=== PATIENT | male | born 1970 | race Caucasian/White ===

== ENCOUNTER 2016-09-24 00:49 | Inpatient (IN) ==
[2016-09-24] MEDS ORDERED: ONDANSETRON 4 MG/2 ML VIAL IV STA (01:07)
[2016-09-24] MEDS ORDERED: HYDROmorphone 2 MG/1 ML VIAL IV STA (01:07)
[2016-09-24] MEDS ORDERED: ONDANSETRON 4 MG/2 ML VIAL ONE (01:27)
[2016-09-24] MEDS ORDERED: HYDROmorphone 2 MG/1 ML VIAL ONE (01:28)
[2016-09-24 01:40] LABS: Basophils # 0.1 10*3/uL (0.0-0.2); Basophils % 0.6 % (0.0-0.8); Eosinophils # 0.4 10*3/uL (0.0-0.87); Eosinophils % 2.1 % (0.00-10.9); Hematocrit 41.6 VOL% (42.0-52.0); Hemoglobin 14.7 GM/DL (14.0-18.0); Immature Granulocytes % 0.6 %; Immature Granulocytes Absolute 0.12 #; Lymphocytes # 3.5 10*3/uL (1.4-4.0); Lymphocytes % 16.8 % (21.2-54.2); Mean Corpuscular HGB Conc 35.3 GM/DL (32-36); Mean Corpuscular Hemoglobin 31 PG (27-34); Mean Corpuscular Volume 88.9 FL (87-102); Mean Platelet Volume 10.2 FL (9.6-12.0); Monocytes # 2.5 10*3/uL (0.11-0.8); Monocytes % 12.1 % (1.7-12.7); Neutrophils # 14.2 10*3/uL (1.4-7.4); Neutrophils % 67.8 % (38.7-73.9); Platelet Count 391 T/CUMM (130-400); Red Blood Count 4.68 MC/CUMM (3.8-5.5); Red Cell Distribution Width 14.8 % (9.3-17.3); White Blood Count 20.9 T/CUMM (4-12)
--- NOTE | 2016-09-24 01:46 | Emergency Department Note ---
Nikhil Ambriz Mantricia, am scribing for, and in the presence of, Eldon Valencia MD 01:12. Erik Ambriz Robert M, MD, personally performed the services described in this documentation, ascribed by Bobby Tejeda in my presence, and it is both accurate and complete . Arrival - Arrival Chief Complaint: Abdominal / Flank Pain Stated Complaint: severe abd. pain ED Nursing Triage Note: pt states he is having severe abd pain that started last night and getting worse. states last time this happened he had pancreatitis Mode of Arrival: Ambulatory Limitations: No Limitations Source: Patient - History of Present Illness HPI Narrative: Pt is a 46 y/o white male arriving to ED with c/o abdominal pain that onset last night. Pt states that he has a Hx of pancreatitis and reports that his sxs now are similar to those of his pancreatic pain. Pt states that the pain radiates to his back. 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 Encarnacion. Pt states that at that time, 20% of his pancreas and 100% of his spleen was removed. He also states that a BARTOLO drain was performed by Dr. Encarnacion last and a red catheter was reinserted. Pt has had 4 ERCPs in the last 3 months. His PCP is Dr. Do. He reports no other complaints to ED. Onset (ago): hour(s) Consistency: constant Severity: mild Allergies/Adverse Reactions: Allergies Allergy/AdvReac Type Severity Reaction Status Date / Time No Known Allergies Allergy Verified 04/25/16 13:55 Home Medications: Home Medications Medication Instructions Recorded Confirmed Type Pramipexole Di-HCl [Pramipexole 0.25 mg PO BEDTIME 04/25/16 08/07/16 History Dihydrochloride] Rosuvastatin Calcium [Crestor] 40 mg PO BEDTIME 04/25/16 08/07/16 History glipiZIDE [Glipizide Xl] 10 mg PO BEDTIME 04/25/16 08/07/16 History sitaGLIPtin [Januvia] 100 mg PO BEDTIME 04/25/16 08/07/16 History Senna Tab [Senokot] 25.8 mg PO BEDTIME 06/20/16 08/07/16 History Amlodipine Besylate 5 mg PO DAILY #30 tablet 08/10/16 Rx Amoxicillin Cap/Tab 875 mg PO Q12HR #30 tablet 08/10/16 Rx Insulin Glargine [Lantus] 25 unit SUBCUT BEDTIME 08/14/16 08/14/16 History Review of System - Review of System 12 point system: reviewed and no additional remarkable complaints except as stated - Review of System Respiratory: Absent: cough Cardiovascular: Absent: chest pain Gastrointestinal: Present: abdominal pain Genitourinary male: Absent: urgency Musculoskeletal: Present: back pain. Absent: arm pain, leg pain, neck pain Medical,Surgical,& Family Hx - Medical History Cardio: History of: Hypertension No history of: Cardiovascular Problems Neurology: No history of: Seizures Endocrine: History of: Diabetes Mellitus (NIDDM) Respiratory: History of: COPD, Obstructive Sleep Apnea (CPap) Gastrointestinal: History of: Pancreatitis, GI Problems (percutaneous drain inserted at time of surgery in April) Musculoskeletal: History of: Musculoskeletal Problems (OA) Hematology: No history of: Anemia, Blood Transfusion Reaction Other: No history of: Anesthesia Reactions, Cancer - Surgical History Cardiac Surgeries: Sugical HX of: Cardiac Catheterization Patient Denies: Cardiac Surgery Thoracic Surgeries: Patient denies;: Lobectomy HEENT Surgeries: Patient denies: Tonsilectomy & Adenoidectomy Abdominal Surgeries: Surgical HX of: Abdominal Surgery (Pancreatectomy and spleenectomy) Patient denies: Appendectomy, Cholecystectomy, Colonoscopy, EGD Orthopedic Surgeries: Patient denies;: Orthopedic Surgery - Family History Family History: Reports;: Family Cancer (mother-breast, aunt-leukemia, brother- throat), Family Heart Disease (PARENTS), Family Hypertension Denies;: Family Diabetes - Social History Smoking Status: Current every day smoker Frequency of Alcohol Use: None Type of Drug Use: None Exam Vital Signs: Vital Signs Temperature 99.1 F 09/24/16 01:41 Pulse Rate 124 H 09/24/16 01:41 Respiratory Rate 18 09/24/16 01:41 Blood Pressure 131/95 09/24/16 01:41 O2 Sat by Pulse Oximetry 95 09/24/16 00:52 - General General appearance: alert, in no apparent distress - Head Head exam: Present: atraumatic, normocephalic, normal inspection - Eye Eye exam: Present: normal appearance, PERRL, EOMI - ENT ENT exam: Present: normal exam, normal oropharynx, mucous membranes moist, TM's normal bilaterally, normal external ear exam - Neck Neck exam: Present: normal inspection, full ROM, trachea midline. Absent: tenderness - Chest Chest inspection: Present: normal inspection, symmetric chest wall rise. Absent : tenderness - Respiratory Respiratory exam: Present: normal lung sounds bilaterally - Cardiovascular Cardiovascular exam: Present: regular rate, normal rhythm, normal heart sounds - Abdominal Exam Abdominal exam: Present: soft, tenderness, guarding. Absent: distention, rebound, normal bowel sounds - Extremities Exam Extremities exam: Present: normal inspection, full ROM, normal capillary refill. Absent: tenderness, pedal edema - Back Exam Back exam: Present: normal inspection, full ROM. Absent: tenderness - Neurological Exam Neurological exam: Present: alert, oriented X3, CN II-XII intact, normal gait, reflexes normal - Psychiatric Psychiatric exam: Present: normal affect, normal mood - Skin Skin exam: Present: warm, dry, intact, normal color Course - Consultations Consultation #1: Spoke to Dr. Doug Encarnacion k will admit the patient and see him later this morning. Time: 02:53 Results - Labs CBC & BMP: 09/24/16 01:28 09/24/16 01:28 Lab Results: I have reviewed the patients labs Labs: Lab Results WBC 20.9 T/CUMM (4-12) H 09/24/16 01:28 RBC 4.68 MC/CUMM (3.8-5.5) 09/24/16 01:28 Hgb 14.7 GM/DL (14.0-18.0) 09/24/16 01:28 Hct 41.6 VOL% (42.0-52.0) L 09/24/16 01:28 MCV 88.9 FL (87-102) 09/24/16 01:28 MCH 31 PG (27-34) 09/24/16 01:28 MCHC 35.3 GM/DL (32-36) 09/24/16 01:28 RDW 14.8 % (9.3-17.3) 09/24/16 01:28 Plt Count 391 T/CUMM (130-400) 09/24/16 01:28 MPV 10.2 FL (9.6-12.0) 09/24/16 01:28 Neut % (Auto) 67.8 % (38.7-73.9) 09/24/16 01:28 Lymph % (Auto) 16.8 % (21.2-54.2) L 09/24/16 01:28 [place] % (Auto) 12.1 % (1.7-12.7) 09/24/16 01:28 Eos % (Auto) 2.1 % (0.00-10.9) 09/24/16 01:28 Baso % (Auto) 0.6 % (0.0-0.8) 09/24/16 01:28 Neut # (Auto) 14.2 10*3/uL (1.4-7.4) H 09/24/16 01:28 Lymph # (Auto) 3.5 10*3/uL (1.4-4.0) 09/24/16 01:28 [place] # (Auto) 2.5 10*3/uL (0.11-0.8) H 09/24/16 01:28 Eos # (Auto) 0.4 10*3/uL (0.0-0.87) 09/24/16 01:28 Baso # (Auto) 0.1 10*3/uL (0.0-0.2) 09/24/16 01:28 Immature Gran % 0.6 % 09/24/16 01:28 Nucleated RBC % 0.0 /100WBC 09/24/16 01:28 Immature Gran # 0.12 # 09/24/16 01:28 Nucleated RBCs # 0.00 10*3/uL 09/24/16 01:28 Sodium 136 MMOL/L (136-145) 09/24/16 01:28 Potassium 3.9 MMOL/L (3.5-5.1) 09/24/16 01:28 Chloride 103 MMOL/L (98-107) 09/24/16 01:28 Carbon Dioxide 26 MMOL/L (21-32) 09/24/16 01:28 Anion Gap 10.9 MMOL/L (5.0-15.0) 09/24/16 01:28 BUN 18 MG/DL (7-18) 09/24/16 01:28 Creatinine 0.90 MG/DL (0.70-1.30) 09/24/16 01:28 GFR Calculation 125 ML/MIN 09/24/16 01:28 BUN/Creatinine Ratio 20.00 RATIO (6.00-20.00) 09/24/16 01:28 Glucose 252 MG/DL (74-106) H 09/24/16 01:28 Calculated Osmolality 282.0 MOS/KG (273-304) 09/24/16 01:28 Calcium 8.9 MG/DL (8.5-10.1) 09/24/16 01:28 Magnesium 2.0 MG/DL (1.8-2.4) 09/24/16 01:28 Amylase 81 U/L (25-115) 09/24/16 01:28 Lipase 976.0 U/L (73-393) H 09/24/16 01:28 Urine Color Yellow (Yellow) 09/24/16 01:41 Urine Appearance Clear (Clear) 09/24/16 01:41 Urine pH 6.0 (4.5-8.0) 09/24/16 01:41 Ur Specific [place] 1.023 (1.001-1.035) 09/24/16 01:41 Urine Protein Negative MG/DL 09/24/16 01:41 Urine Glucose (UA) >=500 mg/dL (Negative) 09/24/16 01:41 Urine Ketones 5 mg/dL (Negative) 09/24/16 01:41 Urine Blood Small mg/dL (Negative) 09/24/16 01:41 Urine Nitrate Negative (Negative) 09/24/16 01:41 Urine Bilirubin Negative mg/dL (Negative) 09/24/16 01:41 Urine Urobilinogen 2.0 EU/DL (0.2-1.0) H 09/24/16 01:41 Urine Leukocytes Trace Victoriano/ul (Negative) 09/24/16 01:41 Urine RBC <1 /HPF (0-4) 09/24/16 01:41 Urine WBC <1 /HPF (0-6) 09/24/16 01:41 Ur Renal Epithelial Cell Occasional /HPF (<1) 09/24/16 01:41 Urine Mucus Occasional /LPF (Occasional) 09/24/16 01:41 Ur Culture Indicated? Not indicated 09/24/16 01:41 - Diagnostic Findings Procedure: CT Abdomen and Pelvis: image reviewed by me (Large pancreatic phlegmon. Drainage catheter in place does not appear to be effectively draining the surgical bed.) Disposition Clinical Impression: Acute pancreatitis, DM2 (diabetes mellitus, type 2), HTN (hypertension) Case discussed with: patient Disposition: Still a Patient Condition: Stable Time of Disposition: 02:54
[2016-09-24 01:51] LABS: Apearance,Urine CLEAR (Clear); Bilirubin,Urine Negative (Negative); Blood, Urine Small mg/dL (Negative); Glucose,Urine (UA) >=500 mg/dL (Negative); Ketones,Urine 5 mg/dL (Negative); Mucus,Urine Occasional /LPF (Occasional); Nitrite,Urine Negative (Negative); Protein,Urine Negative; RBC,Urine <1 /HPF (0-4); Renal Epithelial Cells,Urine Occasional /HPF (<1); Urine Color Yellow (Yellow); Urine Specific Gravity 1.023 (1.001-1.035); WBC,Urine <1 /HPF (0-6)
[2016-09-24 01:59] LABS: Calcium 8.9 MG/DL (8.5-10.1); Potassium 3.9 MMOL/L (3.5-5.1)
[2016-09-24] MEDS ORDERED: GLUCAGON 1 MG VIAL IM PRN (02:55)
[2016-09-24] MEDS ORDERED: ONDANSETRON 4 MG/2 ML VIAL IV PRN (02:55)
[2016-09-24] MEDS ORDERED: DEXTROSE 50% 25 GM/50 ML VIAL IV PRN (02:55)
[2016-09-24] MEDS ORDERED: BISACODYL 5 MG TABLET PO PRN (02:55)
[2016-09-24] MEDS ORDERED: ACETAMINOPHEN 325 MG TABLET PO PRN (02:55)
[2016-09-24 03:52] LABS: Anisocytosis 1+; Eosinophils 3 % (0-10); Lymphocytes 17 % (20-55); Metamyelocytes 1 %; Microcytosis 1+; Platelet Estimate Normal; Segmented Neutrophils 66 % (50-85); Total Cells Counted 100
[2016-09-24] MEDS: HYDROmorphone 2 MG/1 ML VIAL IV PRN ×4 (04:51→20:04)
--- NOTE | 2016-09-24 06:23 | XRay Report ---
XR KUB Indication: Abdominal pain. Comparison: Abdominal series 08/14/2016. Technique: Supine AP image of the abdomen was obtained. Findings: Lung bases are clear. There is no evidence of organomegaly. Bowel gas pattern is unremarkable. Renal contours are bilaterally symmetric. Bones and soft tissues demonstrate no significant abnormalities. Catheter within the mid left abdomen possibly reflecting percutaneous drain or jejunostomy tube is demonstrated. Impression: 1. No active process is demonstrated within the abdomen or pelvis. 09/24/2016 6:19 AM PROCEDURE INTERPRETED AT [facility] DEPARTMENT OF RADIOLOGY Final Report Signed by: Dr. Curtis Valencia
--- NOTE | 2016-09-24 06:36 | CT Report ---
CT abdomen pelvis w con Indication: Abdominal pain following partial pancreatectomy. Percutaneous drain. Comparison: None. Technique: CT of the abdomen and pelvis was performed following administration of intravenous contrast. The CT examination was performed using one or more of the following dose reduction techniques: Automatic exposure control, adjustment of the mA and kV according to patient size, or iterative reconstruction techniques. Findings: Lower chest: Groundglass attenuation dependently located within the bilateral lower lobes may reflect atelectatic change. No pleural effusions are present. Liver: The liver demonstrates no evidence of focal hepatic mass or evidence of acute pathology. Gallbladder: Gallbladder demonstrates no significant abnormality. Spleen: Spleen appears to be surgically absent. Pancreas: The tail of pancreas is absent. There is a large phlegmon abutting the greater curvature of the stomach with fat stranding and hazy attenuation of the intra-abdominal fat present. No discrete fluid collection is demonstrated within the pancreatic bed. Percutaneous drain present terminates within the anterior fat of the abdomen. There is no distinct fluid collection in the region of termination. There is a curvilinear focus of increased attenuation extending from the tip of the drain into the phlegmon, this may reflect sequelae of previous surgical drain. The remaining body and head of the pancreas demonstrate no significant abnormalities. No ductal dilatation is present. Adrenal glands: Digital implants demonstrate no significant abnormalities. Kidneys: Kidneys demonstrate no significant abnormality. Aorta: The aorta demonstrates no acute findings. Inferior vena cava: Inferior vena cava is normal in appearance. Lymph nodes: Enlarged lower para-aortic lymph nodes measure 12 mm in short axis dimension. Upper para-aortic lymph nodes are borderline in size measuring 7-8 mm. Stomach and bowel: The lesser curvature of the stomach has a moderate amount of adjacent fat stranding as well as suggested wall thickening. This could reflect sequelae of adjacent phlegmon, pancreatitis, or surgical change. The mucosa of the stomach demonstrates no significant abnormality. Small and large bowel demonstrate no acute findings. Intrapelvic contents: Trace amount of free fluid is noted within the pelvis. Intrapelvic contents are otherwise unremarkable. Osseous structures: The imaged osseous structures of the lumbar spine, pelvis, and proximal femurs demonstrate no acute findings. Soft tissues and musculature: Soft tissues and musculature of the body wall demonstrate no acute findings. Left upper abdomen percutaneous drain is present. Impression: 1. Within the resection bed, there is a moderate to large amount of fat stranding which abuts the greater curvature of the stomach and appears to thicken the gastric wall along the greater curvature/caudal gastric antrum. No discrete fluid collections appear associated. Differential considerations include sequelae of focal pancreatitis, postsurgical changes, other inflammatory process. 2. A percutaneous drain present terminates within the anterior abdominal fat and has no discrete fluid collection surrounding the tip. Curvilinear attenuation extending into the pancreatic bed may reflect prior placement of surgical drain or possibly tract from current drain with displacement of current drain. 3. Findings compatible with resection of the pancreatic tail and a portion of the pancreatic body. 4. Enlarged para-aortic lymph nodes may reflect reactive etiology given the recent surgery. Correlation with surgical indication is recommended as metastatic disease is not excluded if resection was performed secondary to neoplasm. 5. Other findings as detailed. 09/24/2016 6:25 AM PROCEDURE INTERPRETED AT [facility] DEPARTMENT OF RADIOLOGY Final Report Signed by: Dr. Curtis Valencia
--- NOTE | 2016-09-24 08:02 | General Surg History&Physical ---
Assessment and Plan (1) Acute pancreatitis Status: Acute Assessment and plan: The patient appears to have some degree of pancreatitis. He feels better this morning. We will let him eat and continue antibiotics and repeat labs tomorrow. Hopefully this is something that will resolve on its own. He states he has not been drinking and this may just be resulting from the healing process in the pancreatic resection bed. Current Visit: Yes History of Present Illness Chief complaint: Abdominal pain History of present illness: Mr. Escalera is a 46 year old male who was admitted to the ER with abdominal pain and evidence of pancreatitis on CT scan. Feels much better this morning. He has a drain that is being slowly removed that is not causing any irritation or pain Home Medications Medication Instructions Recorded Confirmed Type Pramipexole Di-HCl [Pramipexole 0.5 mg PO BEDTIME 04/25/16 09/24/16 History Dihydrochloride] Rosuvastatin Calcium [Crestor] 40 mg PO BEDTIME 04/25/16 09/24/16 History Senna Tab [Senokot] 25.8 mg PO BEDTIME 06/20/16 09/24/16 History Amlodipine Besylate 5 mg PO DAILY #30 tablet 08/10/16 09/24/16 Rx Insulin Aspart [Novolog] See Protocol SQ TID W/MEALS 09/24/16 09/24/16 History Insulin Degludec [Tresiba 86 unit SQ QAM 09/24/16 09/24/16 History Flextouch U-200] Allergies Allergy/AdvReac Type Severity Reaction Status Date / Time No Known Allergies Allergy Verified 04/25/16 13:55 Medical,Surgical,& Family Hx - Medical History Cardio: History of: Hypertension No history of: Cardiovascular Problems Neurology: No history of: Seizures Endocrine: History of: Diabetes Mellitus (IDDM), Diabetes Mellitus (NIDDM) Respiratory: History of: COPD, Obstructive Sleep Apnea (CPap) Gastrointestinal: History of: Pancreatitis, GI Problems (percutaneous drain inserted at time of surgery in April) Musculoskeletal: History of: Musculoskeletal Problems (OA) Hematology: No history of: Anemia, Blood Transfusion Reaction Other: No history of: Anesthesia Reactions, Cancer - Surgical History Cardiac Surgeries: Sugical HX of: Cardiac Catheterization Patient Denies: Cardiac Surgery Thoracic Surgeries: Patient denies;: Lobectomy HEENT Surgeries: Patient denies: Tonsilectomy & Adenoidectomy Abdominal Surgeries: Surgical HX of: Abdominal Surgery (Pancreatectomy and spleenectomy) Patient denies: Appendectomy, Cholecystectomy, Colonoscopy, EGD Orthopedic Surgeries: Patient denies;: Orthopedic Surgery - Family History Family History: Reports;: Family Cancer (mother-breast, aunt-leukemia, brother- throat), Family Heart Disease (PARENTS), Family Hypertension Denies;: Family Diabetes - Social History Smoking Status: Current every day smoker Frequency of Alcohol Use: None Type of Drug Use: None Exam - Constitutional Vitals: Period Temp Pulse Resp BP Sys/Meraz Pulse Ox Last 24 Hr 98.1 F-99.1 F 85-124 16-24 98-131/55-95 95-96 General appearance: no acute distress, over weight - Head Head exam: Present: normal inspection, normocephalic - Eye Eye exam: Present: EOMI Pupils: Present: LOUISE - ENT ENT exam: Present: normal exam Mouth exam: Present: normal external inspection, normal voice - Neck Neck exam: Present: normal inspection, trachea midline - Respiratory Respiratory exam: Present: clear to auscultation bilaterally. Absent: accessory muscle use, chest wall tenderness - Cardiovascular Cardiovascular exam: Present: RRR. Absent: systolic murmur, tachycardia - GI/Abdominal GI/Abdominal exam: Present: soft - Extremities Exam Extremities exam: Present: normal inspection, normal capillary refill - Back Exam Back exam: Present: normal inspection - Neurological Exam Neurological exam: Present: alert, oriented X3 Speech: Present: normal - Skin Skin exam: Present: normal color, warm - Constitutional Constitutional: Present: as per HPI - EENT Nose, mouth and throat: Present: as per HPI - Cardiovascular Cardiovascular: Present: as per HPI - Respiratory Respiratory: Present: as per HPI - Gastrointestinal Gastrointestinal: Present: as per HPI - Genitourinary Genitourinary: Present: as per HPI - Musculoskeletal Musculoskeletal: Present: as per HPI - Neurological Neurological: Present: as per HPI - Endocrine Endocrine: Present: as per HPI Hematologic/Lymphatic: Present: as per HPI Results - Labs CBC & BMP: 09/24/16 01:28 09/24/16 01:28 - Diagnostic Findings Procedure: CT Abdomen and Pelvis: image reviewed by me, report reviewed by me ( There is inflammatory change at the pancreatic resection bed but no fluid collection is seen.)
[2016-09-24] MEDS: INSULIN LISPRO 100 UNIT/ML SUBCUT SCH ×4 (08:28→20:07)
[2016-09-24] MEDS: PANTOPRAZOLE 40 MG TABLET PO SCH (08:28)
[2016-09-24] MEDS: ENOXAPARIN 40 MG/0.4 ML SYRINGE SUBCUT SCH (16:03)
[2016-09-25] MEDS: HYDROmorphone 2 MG/1 ML VIAL IV PRN ×4 (05:38→18:58)
[2016-09-25 06:12] LABS: Basophils # 0.1 10*3/uL (0.0-0.2); Basophils % 0.6 % (0.0-0.8); Eosinophils # 0.4 10*3/uL (0.0-0.87); Eosinophils % 3.3 % (0.00-10.9); Hematocrit 41.8 VOL% (42.0-52.0); Hemoglobin 13.9 GM/DL (14.0-18.0); Immature Granulocytes % 0.7 %; Immature Granulocytes Absolute 0.09 #; Lymphocytes # 2.8 10*3/uL (1.4-4.0); Mean Corpuscular HGB Conc 33.3 GM/DL (32-36); Mean Corpuscular Hemoglobin 30 PG (27-34); Mean Corpuscular Volume 89.9 FL (87-102); Mean Platelet Volume 10.7 FL (9.6-12.0); Monocytes # 1.9 10*3/uL (0.11-0.8); Monocytes % 14.5 % (1.7-12.7); Neutrophils # 7.9 10*3/uL (1.4-7.4); Neutrophils % 59.9 % (38.7-73.9); Platelet Count 409 T/CUMM (130-400); Red Blood Count 4.65 MC/CUMM (3.8-5.5); White Blood Count 13.2 T/CUMM (4-12)
[2016-09-25 06:43] LABS: Calcium 8.8 MG/DL (8.5-10.1); Osmolality,Calculated 275.8 MOS/KG (273-304); Total Protein 6.5 G/DL (6.4-8.3)
[2016-09-25] MEDS: PANTOPRAZOLE 40 MG TABLET PO SCH (09:02)
[2016-09-25] MEDS: INSULIN LISPRO 100 UNIT/ML SUBCUT SCH ×4 (09:02→21:00)
--- NOTE | 2016-09-25 09:49 | General Surgery Progress Note ---
Assessment and Plan (1) Acute pancreatitis Status: Acute Assessment and plan: White blood cell count is improving. Patient's symptoms are improving. Lipase is downtrending. Continue hospital treatment with antibiotics and diet as tolerated. Repeat labs tomorrow. Probable discharge home tomorrow if continues to improve. Current Visit: Yes Subjective Patient reports: Present: no new complaints, feels better, still having pain, pain is less, tolerating a regular diet, afebrile. Absent: nausea, vomiting Exam - Constitutional Vitals: Period Temp Pulse Resp BP Sys/Meraz Pulse Ox Last 24 Hr 97.7 F-98.5 F 78-88 16-20 96-110/55-68 92-98 General appearance: no acute distress, over weight - Head Head exam: Present: normal inspection, normocephalic - Eye Eye exam: Present: EOMI Pupils: Present: LOUISE - ENT ENT exam: Present: normal exam Mouth exam: Present: normal external inspection, normal voice - Neck Neck exam: Present: normal inspection, trachea midline - Respiratory Respiratory exam: Present: clear to auscultation bilaterally. Absent: accessory muscle use, chest wall tenderness - Cardiovascular Cardiovascular exam: Present: RRR. Absent: systolic murmur, tachycardia - GI/Abdominal GI/Abdominal exam: Present: soft. Absent: tenderness, rebound - Extremities Exam Extremities exam: Present: normal inspection, normal capillary refill - Back Exam Back exam: Present: normal inspection - Neurological Exam Neurological exam: Present: alert, oriented X3 Speech: Present: normal - Skin Skin exam: Present: normal color, warm Results - Labs CBC & BMP: 09/25/16 05:22 09/25/16 05:22
[2016-09-25] MEDS: ENOXAPARIN 40 MG/0.4 ML SYRINGE SUBCUT SCH (16:07)
[2016-09-26] MEDS: HYDROmorphone 2 MG/1 ML VIAL IV PRN (00:11)
[2016-09-26 06:51] LABS: Basophils # 0.1 10*3/uL (0.0-0.2); Basophils % 0.7 % (0.0-0.8); Eosinophils # 0.5 10*3/uL (0.0-0.87); Eosinophils % 3.5 % (0.00-10.9); Hematocrit 42.2 VOL% (42.0-52.0); Hemoglobin 14.3 GM/DL (14.0-18.0); Immature Granulocytes % 0.5 %; Immature Granulocytes Absolute 0.07 #; Lymphocytes # 2.8 10*3/uL (1.4-4.0); Lymphocytes % 21.6 % (21.2-54.2); Mean Corpuscular HGB Conc 33.9 GM/DL (32-36); Mean Corpuscular Hemoglobin 30 PG (27-34); Mean Corpuscular Volume 89.8 FL (87-102); Mean Platelet Volume 10.8 FL (9.6-12.0); Monocytes # 1.7 10*3/uL (0.11-0.8); Monocytes % 13.5 % (1.7-12.7); Neutrophils # 7.8 10*3/uL (1.4-7.4); Neutrophils % 60.2 % (38.7-73.9); Platelet Count 412 T/CUMM (130-400); Red Cell Distribution Width 14.6 % (9.3-17.3); White Blood Count 12.9 T/CUMM (4-12)
[2016-09-26 07:20] LABS: Albumin 3.1 G/DL (3.4-5.0); Bilirubin,Total 0.5 MG/DL (0.2-1.0); Calcium 9.2 MG/DL (8.5-10.1); Osmolality,Calculated 276.8 MOS/KG (273-304); Potassium 4.1 MMOL/L (3.5-5.1); Total Protein 6.8 G/DL (6.4-8.3)
[2016-09-26] MEDS: PANTOPRAZOLE 40 MG TABLET PO SCH (08:35)
[2016-09-26] MEDS: INSULIN LISPRO 100 UNIT/ML SUBCUT SCH ×2 (08:35→11:09)
--- NOTE | 2016-09-26 10:05 | Discharge Summary ---
Hospital Course - Hospital Course Hospital Course: 46-year-old male with history of diabetes and hyperlipidemia admitted by Dr. Encarnacion through the ED on 09/24/2016 with abdominal pain and evidence of pancreatitis on CT scan. Patient states he has not been drinking so this may be a result of the healing process in his pancreatic resection bed. He received antibiotics, IV fluids, and bowel rest and he is feeling much better. His leukocytosis is resolving and his lipase has trended down to normal this morning. He is tolerating a diet and his abdominal pain is improved. He will be discharged home on antibiotics for 2 weeks along with [place] for pain. He will follow-up with Dr. Encarnacion in his office in 2 weeks. Care coordination, chart review, and completed discharge paperwork took approximately 31 minutes. - Time spent with patient Time with patient DS: Greater than 30 minutes Diagnosis - Discharge Diagnosis (1) Leukocytosis Status: Resolved (2) DM2 (diabetes mellitus, type 2) Status: Chronic (3) Hyperlipidemia Status: Chronic (4) Acute pancreatitis Status: Resolved Discharge Plan - Discharge Data Disposition: Disch To Home/Self Care Condition at Discharge: Stable Discharge Diet: diabetic diet Activity: resume usual activities as tolerated Driving: other (No driving if taking pain medications) Contact your physician if you experience:: fever over 101, Nausea/Vomiting - Discharge Medications [place] TAB [Flagyl Cap/Tab] 500 mg PO TID #42 tablet Ciprofloxacin Tab [Cipro Tab] 500 mg PO BID #28 tablet HYDROcodone/ACETAMIN 7.5-325 [[place] 7.5-325] 1 tablet PO Q4H PRN #45 tablet PRN Reason: Pain Moderate (4-7) Continue Pramipexole Di-HCl [Pramipexole Dihydrochloride] 0.5 mg PO BEDTIME Insulin Aspart [NovoLOG] See Protocol SQ TID W/MEALS Rosuvastatin Calcium [Crestor] 40 mg PO BEDTIME Senna Tab [Senokot] 25.8 mg PO BEDTIME Amlodipine Besylate 5 mg PO DAILY #30 tablet Insulin Degludec [Tresiba Flextouch U-200] 86 unit SQ QAM - Follow Up or Referral Follow Up: Doug Encarnacion MD [Physician] - 2 Weeks - Forms/Instructions Exam - Constitutional Vitals: Period Temp Pulse Resp BP Sys/Meraz Pulse Ox Last 24 Hr 96.6 F-97.9 F 67-76 16-20 92-110/57-70 91-95 Exam: 46-year-old male, no acute distress, alert and oriented Chest clear CV regular rate and rhythm Abdomen soft, nontender Extremities no edema Discharge Results Labs on day of discharge: Labs from last 24 hours 09/26/16 09/26/16 09/26/16 06:43 06:23 06:23 WBC 12.9 H RBC 4.70 Hgb 14.3 Hct 42.2 MCV 89.8 MCH 30 MCHC 33.9 RDW 14.6 Plt Count 412 H MPV 10.8 Neut % (Auto) 60.2 Lymph % (Auto) 21.6 [place] % (Auto) 13.5 H Eos % (Auto) 3.5 Baso % (Auto) 0.7 Neut # (Auto) 7.8 H Lymph # (Auto) 2.8 [place] # (Auto) 1.7 H Eos # (Auto) 0.5 Baso # (Auto) 0.1 Immature Gran % 0.5 Nucleated RBC % 0.0 Immature Gran # 0.07 Nucleated RBCs # 0.00 Sodium 137 Potassium 4.1 Chloride 102 Carbon Dioxide 26 Anion Gap 13.1 BUN 12 Creatinine 0.90 GFR Calculation 124 BUN/Creatinine Ratio 13.00 Glucose 162 H POC Glucose 169 H Calculated Osmolality 276.8 Calcium 9.2 Total Bilirubin 0.50 AST 9 ALT 17 Alkaline Phosphatase 80 Total Protein 6.8 Albumin 3.1 L Globulin 3.7 H Albumin/Globulin Ratio 0.8 L Lipase 326.0 D 09/25/16 09/25/16 09/25/16 19:54 15:43 10:42 WBC RBC Hgb Hct MCV MCH MCHC RDW Plt Count MPV Neut % (Auto) Lymph % (Auto) [place] % (Auto) Eos % (Auto) Baso % (Auto) Neut # (Auto) Lymph # (Auto) [place] # (Auto) Eos # (Auto) Baso # (Auto) Immature Gran % Nucleated RBC % Immature Gran # Nucleated RBCs # Sodium Potassium Chloride Carbon Dioxide Anion Gap BUN Creatinine GFR Calculation BUN/Creatinine Ratio Glucose POC Glucose 208 H 284 H 203 H Calculated Osmolality Calcium Total Bilirubin AST ALT Alkaline Phosphatase Total Protein Albumin Globulin Albumin/Globulin Ratio Lipase DS: Provider Date of admission: 09/24/16 02:55 Primary care physician: Manny Campos MD Attending physician on admission: Doug Encarnacion MD Discharging clinician: MAX Chen Expected date of discharge: 09/26/16
[2016-09-26 11:38] VITALS: BP 115/64
== END 2016-09-26 12:26 | disposition home or self-care (01) | DRG 440 ==
LOC: N.ED 00:49 → N.EDINP 02:55 → N.3E 03:57
PROVIDERS: ADMIT Surgery; ATTEND Surgery

== ENCOUNTER 2016-11-30 21:55 | Inpatient (IN) ==
[2016-11-30] MEDS ORDERED: PANTOPRAZOLE 40 MG VIAL IV STA (22:46)
[2016-11-30] MEDS ORDERED: SODIUM CHLORIDE 0.9% 1,000 ML IV STA (22:46)
[2016-11-30] MEDS ORDERED: ONDANSETRON 4 MG/2 ML VIAL IV STA (22:46)
[2016-11-30] MEDS ORDERED: METOCLOPRAMIDE 10 MG/2 ML VIAL IV STA (22:46)
--- NOTE | 2016-11-30 22:51 | Emergency Department Note ---
Arrival - Arrival Chief Complaint: Abdominal / Flank Pain Stated Complaint: pancreatitis attack ED Nursing Triage Note: pt presented to triage ambulatory with c/o abd pain x 4 days. worse tonight. states "feels like pancreatitis again". also c/o nausea Mode of Arrival: Ambulatory Limitations: No Limitations Source: Patient Time Seen by Provider: 11/30/16 22:46 - History of Present Illness HPI Narrative: This 46-year-old white male presents with a history of 4 days of progressive worsening midepigastric pain radiating to the back. The patient has had nausea with this situation but no vomiting, chills, fever, or diarrhea. The patient states he does have a history of pancreatitis on 2 prior occasions but this does not quite feel the same. He does complain of increased heartburn and water brash. Currently he appears very uncomfortable but in no acute medical distress. Onset (ago): day(s) (Patient presents 4 days post onset of symptoms) Allergies/Adverse Reactions: Allergies Allergy/AdvReac Type Severity Reaction Status Date / Time No Known Allergies Allergy Verified 11/30/16 22:06 Home Medications: Home Medications Medication Instructions Recorded Confirmed Type Pramipexole Di-HCl [Pramipexole 0.5 mg PO BEDTIME 04/25/16 09/24/16 History Dihydrochloride] Rosuvastatin Calcium [Crestor] 40 mg PO BEDTIME 04/25/16 09/24/16 History Senna Tab [Senokot] 25.8 mg PO BEDTIME 06/20/16 09/24/16 History Amlodipine Besylate 5 mg PO DAILY #30 tablet 08/10/16 09/24/16 Rx Insulin Aspart [NovoLOG] See Protocol SQ TID W/MEALS 09/24/16 09/24/16 History Insulin Degludec [Tresiba 86 unit SQ QAM 09/24/16 09/24/16 History Flextouch U-200] Ciprofloxacin Tab [Cipro Tab] 500 mg PO BID #28 tablet 09/26/16 Rx HYDROcodone/ACETAMIN 7.5-325 1 tablet PO Q4H PRN #45 tablet 09/26/16 Rx [[place] 7.5-325] metroNIDAZOLE TAB [Flagyl Cap/Tab] 500 mg PO TID #42 tablet 09/26/16 Rx Review of System - Review of System 12 point system: reviewed and no additional remarkable complaints except as stated - Review of System Constitutional: Present: as per HPI Gastrointestinal: Present: as per HPI Medical,Surgical,& Family Hx - Medical History Cardio: History of: Hypertension No history of: Cardiovascular Problems Neurology: No history of: Seizures Endocrine: History of: Diabetes Mellitus (IDDM), Diabetes Mellitus (NIDDM) Respiratory: History of: COPD, Obstructive Sleep Apnea (CPap) Gastrointestinal: History of: Pancreatitis, GI Problems (percutaneous drain inserted at time of surgery in April) Musculoskeletal: History of: Musculoskeletal Problems (OA) Hematology: No history of: Anemia, Blood Transfusion Reaction Other: No history of: Anesthesia Reactions, Cancer - Surgical History Cardiac Surgeries: Sugical HX of: Cardiac Catheterization Patient Denies: Cardiac Surgery Thoracic Surgeries: Patient denies;: Lobectomy HEENT Surgeries: Patient denies: Tonsilectomy & Adenoidectomy Abdominal Surgeries: Surgical HX of: Abdominal Surgery (Pancreatectomy and spleenectomy) Patient denies: Appendectomy, Cholecystectomy, Colonoscopy, EGD Orthopedic Surgeries: Patient denies;: Orthopedic Surgery - Family History Family History: Reports;: Family Cancer (mother-breast, aunt-leukemia, brother- throat), Family Heart Disease (PARENTS), Family Hypertension Denies;: Family Diabetes - Social History Smoking Status: Current every day smoker Frequency of Alcohol Use: None Type of Drug Use: None Exam Physical Examination: GENERAL: Obese white male groaning on the gurney in no acute distress. HEENT: Normocephalic. No trauma. Moist mucous membranes. EOMI. PERRLA. ENT NML NECK: Supple. No adenopathy. CARDIAC: Regular. No murmurs. Heart rate 113 CHEST: Clear to auscultation. No respiratory distress. O2 sat 96% ABDOMEN: Soft. Very tender periumbilical area with very hypoactive bowel sounds. EXTREMITIES: No trauma. Normal ROM. No pedal edema. SKIN: No diaphoresis. No rash. NEURO: Alert. Neuro intact no focal deficits. Vital Signs: Vital Signs Temperature 99.0 F 11/30/16 22:31 Pulse Rate 113 H 11/30/16 22:31 Respiratory Rate 22 11/30/16 22:31 Blood Pressure 141/101 11/30/16 22:31 O2 Sat by Pulse Oximetry 96 11/30/16 22:06 Course - Reevaluation(s) Reevaluation #1: Discussed with patient the need for hospitalization given his acute pancreatitis. - Consultations Consultation #1: Discussed with hospitalist service who will admit for further evaluation treatment. Results - Labs CBC & BMP: 11/30/16 23:11 11/30/16 23:11 Labs: I reviewed the laboratory noted the elevated white blood cell count, sugar, and lipase. - Impressions EKG sinus rhythm at 73 with normal GA interval and QRS duration. Rare multifocal PVCs. Left atrial enlargement as well as left ventricular hypertrophy. Nonspecific ST changes with no acute injury pattern noted.- - Diagnostic Findings Procedure: CT Abdomen and Pelvis: image reviewed by me, report reviewed by me ( Acute pancreatitis with abnormal fluid collection at the distal margin of the pancreas 6.5 x 4 x 4 cm there is likewise a 5 cm x 1.5 cm arising from the fluid collection extending into the splenic flexure this fluid collection could be infected and consistent with abscess.) Disposition Clinical Impression: Pancreatitis, Pancreatic cyst, Possible pancreatic abscess Case discussed with: patient, patient's family Condition: Guarded Time of Disposition: 01:35
[2016-11-30] MEDS ORDERED: ONDANSETRON 4 MG/2 ML VIAL ONE (23:24)
[2016-11-30] MEDS ORDERED: PANTOPRAZOLE 40 MG VIAL IV ONE (23:24)
[2016-11-30] MEDS ORDERED: METOCLOPRAMIDE 10 MG/2 ML VIAL ONE (23:24)
[2016-11-30 23:32] LABS: Basophils # 0.1 10*3/uL (0.0-0.2); Basophils % 0.5 % (0.0-0.8); Eosinophils # 0.2 10*3/uL (0.0-0.87); Eosinophils % 0.9 % (0.00-10.9); Hemoglobin 16.6 GM/DL (14.0-18.0); Immature Granulocytes % 0.7 %; Immature Granulocytes Absolute 0.14 #; Lymphocytes # 3.5 10*3/uL (1.4-4.0); Mean Corpuscular HGB Conc 35.3 GM/DL (32-36); Mean Corpuscular Hemoglobin 31 PG (27-34); Mean Corpuscular Volume 87.5 FL (87-102); Mean Platelet Volume 10.8 FL (9.6-12.0); Monocytes # 2.5 10*3/uL (0.11-0.8); Monocytes % 11.7 % (1.7-12.7); Neutrophils # 15.1 10*3/uL (1.4-7.4); Neutrophils % 70.2 % (38.7-73.9); Platelet Count 354 T/CUMM (130-400); Red Blood Count 5.37 MC/CUMM (3.8-5.5); Red Cell Distribution Width 14.4 % (9.3-17.3); White Blood Count 21.5 T/CUMM (4-12)
[2016-12-01 00:07] LABS: Lactic Acid 1.1 MMOL/L (0.4-2.0)
[2016-12-01 00:22] LABS: Albumin 3.5 G/DL (3.4-5.0); Bilirubin,Total 0.5 MG/DL (0.2-1.0); Calcium 8.7 MG/DL (8.5-10.1); Osmolality,Calculated 280.5 MOS/KG (273-304); Potassium 3.6 MMOL/L (3.5-5.1); Total Protein 7.7 G/DL (6.4-8.3)
[2016-12-01] MEDS ORDERED: LEVOFLOXACIN INJ 750 MG in PREMIX 1 EACH IV STA (00:56)
[2016-12-01] MEDS ORDERED: HYDROmorphone 2 MG/1 ML VIAL IV STA (01:04)
[2016-12-01] MEDS ORDERED: ONDANSETRON 4 MG/2 ML VIAL IV STA (01:04)
[2016-12-01] MEDS ORDERED: ONDANSETRON 4 MG/2 ML VIAL ONE (01:13)
[2016-12-01] MEDS ORDERED: LEVOFLOXACIN INJ 150 ML IV ONE (01:13)
[2016-12-01] MEDS ORDERED: HYDROmorphone 2 MG/1 ML VIAL ONE (01:14)
[2016-12-01] MEDS ORDERED: HYDROmorphone 2 MG/1 ML VIAL IV PRN (01:43)
[2016-12-01] MEDS ORDERED: DEXTROSE 50% 25 GM/50 ML SYRINGE IV PRN (01:44)
[2016-12-01] MEDS ORDERED: GLUCAGON 1 MG VIAL IM PRN (01:44)
[2016-12-01 02:21] LABS: Apearance,Urine CLEAR (Clear); Bilirubin,Urine Negative (Negative); Blood, Urine Negative (Negative); Glucose,Urine (UA) >=500 mg/dL (Negative); Ketones,Urine 5 mg/dL (Negative); Nitrite,Urine Negative (Negative); Protein,Urine Negative; Urine Color Straw (Yellow); Urine Specific Gravity 1.027 (1.001-1.035); Urine Urobilinogen < 2.0 EU/DL (0.2-1.0)
[2016-12-01] MEDS ORDERED: ONDANSETRON 4 MG/2 ML VIAL IV PRN (02:32)
--- NOTE | 2016-12-01 02:36 | Hospitalist History & Physical ---
Assessment and Plan (1) Pancreatitis Status: Resolved Current Visit: No Qualifiers: Chronicity: acute Pancreatitis type: other Acute pancreatitis complication: unspecified Qualified Code(s): K85.80 - Other acute pancreatitis without necrosis or infection (2) Leukocytosis Status: Resolved Current Visit: No (3) DM2 (diabetes mellitus, type 2) Status: Chronic Current Visit: No Qualifiers: Diabetes mellitus roasterman insulin use: without roasterman use (4) HTN (hypertension) Status: Chronic Assessment and plan: Plan for this patient #1 admit the patient our service #2 GI consult #3 surgery consult #4 follow-up on the final read of the CT scan of abdomen #5 Home meds as appropriate #6 IV antibiotics Current Visit: No Qualifiers: Hypertension type: essential hypertension Qualified Code(s): I10 - Essential (primary) hypertension History of Present Illness Chief complaint: Abdominal pain History of present illness: Mr. Escalera is a 46 year old male with past medical history significant for diabetes pancreatitis hyperlipidemia who is in his normal state of health until approximately 4 days ago. Patient reports a gradual onset of pain that slowly increased in intensity. It did not occur like previous times of pancreatitis where it came own all of a sudden. Patient reports that the pain is epigastric and that is really intense. He denies any nausea at this time. He has been feeling hot at times but has not checked his temperature. Patient CT scan and that was done in the emergency room showed a possible fluid collection suggesting infection versus inflammation. Patient sees both Dr. Encarnacion in Dr. Shea in clinic. I was consulted to admit him. Home Medications Medication Instructions Recorded Confirmed Type Pramipexole Di-HCl [Pramipexole 0.5 mg PO BEDTIME 04/25/16 09/24/16 History Dihydrochloride] Rosuvastatin Calcium [Crestor] 40 mg PO BEDTIME 04/25/16 09/24/16 History Senna Tab [Senokot] 25.8 mg PO BEDTIME 06/20/16 09/24/16 History Amlodipine Besylate 5 mg PO DAILY #30 tablet 08/10/16 09/24/16 Rx Insulin Aspart [NovoLOG] See Protocol SQ TID W/MEALS 09/24/16 09/24/16 History Insulin Degludec [Tresiba 86 unit SQ QAM 09/24/16 09/24/16 History Flextouch U-200] Ciprofloxacin Tab [Cipro Tab] 500 mg PO BID #28 tablet 09/26/16 Rx HYDROcodone/ACETAMIN 7.5-325 1 tablet PO Q4H PRN #45 tablet 09/26/16 Rx [[place] 7.5-325] metroNIDAZOLE TAB [Flagyl Cap/Tab] 500 mg PO TID #42 tablet 09/26/16 Rx Allergies Allergy/AdvReac Type Severity Reaction Status Date / Time No Known Allergies Allergy Verified 11/30/16 22:06 Medical,Surgical,& Family Hx - Medical History Cardio: History of: Hypertension No history of: Cardiovascular Problems Neurology: No history of: Seizures Endocrine: History of: Diabetes Mellitus (IDDM), Diabetes Mellitus (NIDDM) Respiratory: History of: COPD, Obstructive Sleep Apnea (CPap) Gastrointestinal: History of: Pancreatitis, GI Problems (percutaneous drain inserted at time of surgery in April) Musculoskeletal: History of: Musculoskeletal Problems (OA) Hematology: No history of: Anemia, Blood Transfusion Reaction Other: No history of: Anesthesia Reactions, Cancer - Surgical History Cardiac Surgeries: Sugical HX of: Cardiac Catheterization Patient Denies: Cardiac Surgery Thoracic Surgeries: Patient denies;: Lobectomy HEENT Surgeries: Patient denies: Tonsilectomy & Adenoidectomy Abdominal Surgeries: Surgical HX of: Abdominal Surgery (Pancreatectomy and spleenectomy) Patient denies: Appendectomy, Cholecystectomy, Colonoscopy, EGD Orthopedic Surgeries: Patient denies;: Orthopedic Surgery - Family History Family History: Reports;: Family Cancer (mother-breast, aunt-leukemia, brother- throat), Family Heart Disease (PARENTS), Family Hypertension Denies;: Family Diabetes - Social History Smoking Status: Current every day smoker Frequency of Alcohol Use: None Type of Drug Use: None 12 point system: reviewed and no additional remarkable complaints except as stated Exam - Constitutional Vitals: Period Temp Pulse Resp BP Sys/Meraz Pulse Ox Last 24 Hr 99.0 F-99.0 F 98-113 18-22 141-142/89-101 95-96 General appearance: normal weight - Head Head exam: Present: normal inspection - Eye Eye exam: Present: EOMI Pupils: Present: LOUISE - ENT ENT exam: Present: normal exam - Neck Neck exam: Present: normal inspection - Respiratory Respiratory exam: Present: clear to auscultation bilaterally - Cardiovascular Cardiovascular exam: Present: regular rate and rhythm - GI/Abdominal GI/Abdominal exam: Present: hypoactive bowel sounds, tenderness (Epigastric). Absent: rebound - Back Exam Back exam: Present: normal inspection - Neurological Exam Neurological exam: Present: alert, oriented X3 - Psychiatric Psychiatric exam: Present: normal affect Results - Labs CBC & BMP: 11/30/16 23:11 11/30/16 23:11
[2016-12-01 03:07] LABS: Platelet Estimate Normal
[2016-12-01] MEDS: metroNIDAZOLE INJ 500 MG in PREMIX 1 EACH IV SCH ×3 (03:14→18:06)
[2016-12-01] MEDS: SODIUM CHLORIDE 0.9% 1,000 ML IV SCH ×2 (03:15→14:01)
[2016-12-01] MEDS: HYDROmorphone 2 MG/1 ML VIAL IV PRN ×6 (05:03→21:25)
[2016-12-01] MEDS: INSULIN REGULAR 100 UNIT/ML SUBCUT SCH ×3 (06:27→17:48)
[2016-12-01 06:33] LABS: Basophils # 0.1 10*3/uL (0.0-0.2); Basophils % 0.4 % (0.0-0.8); Eosinophils # 0.2 10*3/uL (0.0-0.87); Hematocrit 42.4 VOL% (42.0-52.0); Hemoglobin 14.7 GM/DL (14.0-18.0); Immature Granulocytes % 0.8 %; Immature Granulocytes Absolute 0.17 #; Lymphocytes # 2.7 10*3/uL (1.4-4.0); Lymphocytes % 12.3 % (21.2-54.2); Mean Corpuscular HGB Conc 34.7 GM/DL (32-36); Mean Corpuscular Hemoglobin 31 PG (27-34); Mean Corpuscular Volume 88.3 FL (87-102); Mean Platelet Volume 10.7 FL (9.6-12.0); Monocytes # 3.1 10*3/uL (0.11-0.8); Monocytes % 14.1 % (1.7-12.7); Neutrophils # 15.5 10*3/uL (1.4-7.4); Neutrophils % 71.4 % (38.7-73.9); Platelet Count 332 T/CUMM (130-400); Red Cell Distribution Width 14.4 % (9.3-17.3); White Blood Count 21.8 T/CUMM (4-12)
[2016-12-01 06:55] LABS: Giant Platelets Few; Lymphocytes 14 % (20-55); Platelet Estimate Adequate; Segmented Neutrophils 69 % (50-85); Total Cells Counted 100
[2016-12-01 06:56] LABS: Hypochromasia 1+; Microcytosis Slight
[2016-12-01 07:09] LABS: Albumin 2.9 G/DL (3.4-5.0); Bilirubin,Total 0.7 MG/DL (0.2-1.0); Calcium 8.1 MG/DL (8.5-10.1); Osmolality,Calculated 278.1 MOS/KG (273-304); Potassium 3.8 MMOL/L (3.5-5.1); Total Protein 6.6 G/DL (6.4-8.3)
--- NOTE | 2016-12-01 07:12 | CT Report ---
CT abdomen pelvis Indication: Abdominal pain, pancreatic cyst Comparison: 26 November 2016 Technique: Axial CT imaging of the abdomen and pelvis is performed with intravenous and oral contrast. Contrast dose is 100 cc of Omnipaque 350. Findings: Cardiac and lung bases are within normal limits CT abdomen: There is a cyst adjacent to the body of the pancreas are increased in size and measures 5.3 x 3.0 cm. There is small amount of adjacent stranding and a few subcentimeter lymph nodes are also present similar to previous study. There is a pocket of fluid extending to the left posterior to the hepatic flexure of the colon measuring up to 1.5 cm in size not present on the previous exam. Adjacent calcifications are present similar to previous study. The tail of the pancreas and spleen are absent. The liver and adrenal glands are normal in size and enhancement. No evidence of focal lesion is demonstrated in these solid organs. Kidneys are normal in size and enhancement. No evidence of hydronephrosis or nephrolithiasis is seen. The bowel caliber is normal and no wall thickening or adjacent inflammatory change is seen. No evidence of free fluid or free air is present. CT pelvis: The pelvic bowel appears within normal limits. Bladder shows no evidence of abnormality. The pelvic organs show no evidence of abnormality Impression: Increasing size and extension of fluid collection as described above may indicate worsening of pancreatic pseudocysts/pancreatitis This CT exam was performed using one or more the following dose reduction techniques: Automated exposure control, adjustment of the MA and/or KV according to patient size, or use of iterative reconstruction technique. PROCEDURE INTERPRETED AT [facility] Final Report Signed by: Dr. Ang Grullon
--- NOTE | 2016-12-01 08:35 | General Surgery Consult Note ---
Assessment and Plan (1) Fluid collection of pancreas Status: Acute Assessment and plan: It is my opinion that this would be best served by endoscopic ultrasound with drainage into the stomach (endoscopic cyst gastrostomy). This would need to be done at the [facility] where the patient has had prior interventions in the past. I think the best thing to do would be to transfer him inpatient to the medicine service there for an evaluation by GI for endoscopic cyst gastrostomy. I will continue to follow him while he is here. Current Visit: Yes History of Present Illness Chief complaint: Abdominal pain with pancreatitis and fluid collection around the pancreas History of present illness: Mr. Escalera is a 46 year old male who was admitted to the hospital with 4 days of worsening abdominal pain and evidence of recurrent pancreatitis with pancreatic fluid collection of the resection bed. He has a leukocytosis but is afebrile Home Medications Medication Instructions Recorded Confirmed Type Pramipexole Di-HCl [Pramipexole 0.5 mg PO BEDTIME 04/25/16 12/01/16 History Dihydrochloride] Rosuvastatin Calcium [Crestor] 40 mg PO BEDTIME 04/25/16 12/01/16 History Senna Tab [Senokot] 25.8 mg PO BEDTIME 06/20/16 12/01/16 History Amlodipine Besylate 5 mg PO DAILY #30 tablet 08/10/16 12/01/16 Rx Insulin Aspart [NovoLOG] See Protocol SQ TID W/MEALS 09/24/16 12/01/16 History Insulin Degludec [Tresiba 92 unit SQ QAM 09/24/16 12/01/16 History Flextouch U-200] Allergies Allergy/AdvReac Type Severity Reaction Status Date / Time No Known Allergies Allergy Verified 11/30/16 22:06 Medical,Surgical,& Family Hx - Medical History Cardio: History of: Hypertension No history of: Aneurysm, Cardiac Dysrhythmia, Cerebrovascular Disease, Congenital Heart Disease, CHF, CAD, [place], Pacemaker, PVD, Valvular Heart Disease, Cardiovascular Problems Psychological: No history of: Anxiety Disorders, ADHD, Behavior Problems, Bipolar Disorder, Depression, Previous Suicide Attempt, Psychiatric/Substance Abuse Tx, Schizophrenia, Violent Behavior, Psychiatric Problems Neurology: No history of: Brain Aneurysm, Cerebral Hemorrhage, Cerebrovascular Accident , Cerebral Palsy, Dementia, Migraine, Multiple Sclerosis, Parkinson's Disease, Peripheral Neuropathy, Seizures, TIA, Vertigo, Neurologocal Cancer HEENT: No history of: Ear Problem, Eye Problem, Dental Problems, Glaucoma, Oral Cancer, HEENT Problems Endocrine: History of: Diabetes Mellitus (IDDM), Diabetes Mellitus (NIDDM) No history of: Adrenal Disease, Dyslipidemia, Thyroid Disorder, Endocrine Cancer, Endocrine Problems Rheumatology: No history of;: Fibromyalgia, Gout, Myasthenia Gravis, Psoriasis, Rheumatoid Arthritis, Sjogrens, Systemic Lupus Erythematosus, Rheumatological Problems Respiratory: History of: COPD, Obstructive Sleep Apnea (CPap) No history of: Asthma, Bronchitis, Intubation, Pulmonary Embolism, Pulmonary Hypertension, Pneumonia, Lung Cancer, Respiratory Problems Gastrointestinal: History of: Pancreatitis, GI Problems (percutaneous drain inserted at time of surgery in April) Musculoskeletal: History of: Back/Neck Problems No history of: Amputation, Degenerative Disk Disease, Herniated Disk, Osteoporosis, Musculoskeletal Cancer, Musculoskeletal Problems (OA) Hematology: No history of: Anemia, Blood Transfusion Reaction, Bleeding Problems, Clotting Problems, Sickle Cell Disease, Hematologic Cancer, Blood Disorders Reproductive: No histroy: Penile Disorder, Sexually Transmitted Disease, Reproductive Cancer, Reproductive Problems Other: No history of: Anesthesia Reactions, Anaphylaxis, Cancer, Eczema, HIV, Malignant Hyperthermia, MRSA, Vancomycin-Resistant Enterococci, Skin Problems, Miscellaneous Medical Problems - Surgical History Cardiac Surgeries: Sugical HX of: Cardiac Catheterization Patient Denies: Femoral-Popliteal Bypass Graft, Cardiac Surgery, Carotid Endarterectomy, Internal Defibrillator, Vascular Access Devices Thoracic Surgeries: Patient denies;: Kidney (Renal Surgery), Lithotripsy, Nephrectomy, Organ Transplant, Lobectomy Neurologic Surgeries: Patient denies: Brain Aneurysm, Cerebral Hemorrhage, Neurologic Surgery HEENT Surgeries: Patient denies: Carotid Endarterectomy, Eye Surgery, Thyroid Surgery, Tonsilectomy & Adenoidectomy Abdominal Surgeries: Surgical HX of: Abdominal Surgery (Pancreatectomy and spleenectomy), Splenectomy Patient denies: Appendectomy, Cholecystectomy, Colonoscopy, Gastric Bypass Surgery, EGD, Hernia Repair Reproductive Surgeries: Patient denies;: Breast Surgery, Cystoscopy, Genitourinary Surgery, Prostate Surgery, Vasectomy Orthopedic Surgeries: Patient denies;: Implanted Devices, Orthopedic Surgery, Spinal Surgery, Total Hip Replacement, Total Knee Replacement - Family History Family History: Reports;: Family Cancer (mother-breast, aunt-leukemia, brother- throat), Family Heart Disease (PARENTS), Family Hypertension Denies;: Family Anesthesia Reaction, Family Diabetes, Family Hematology, Family Psychiatric Problems, Family Stroke, Additional Family History - Social History Smoking Status: Current every day smoker Frequency of Alcohol Use: None Type of Drug Use: None - Constitutional Constitutional: Present: as per HPI - EENT Nose, mouth and throat: Present: as per HPI - Cardiovascular Cardiovascular: Present: as per HPI - Respiratory Respiratory: Present: as per HPI - Gastrointestinal Gastrointestinal: Present: as per HPI - Genitourinary Genitourinary: Present: as per HPI - Musculoskeletal Musculoskeletal: Present: as per HPI - Neurological Neurological: Present: as per HPI - Endocrine Endocrine: Present: as per HPI Hematologic/Lymphatic: Present: as per HPI Exam - Constitutional Vitals: Period Temp Pulse Resp BP Sys/Meraz Pulse Ox Last 24 Hr 96.9 F-99.0 F 85-113 16-22 128-147/71-102 91-100 General appearance: no acute distress, over weight - Head Head exam: Present: normal inspection, normocephalic - Eye Eye exam: Present: EOMI Pupils: Present: LOUISE - ENT ENT exam: Present: normal exam Mouth exam: Present: normal external inspection, normal voice - Neck Neck exam: Present: normal inspection, trachea midline - Respiratory Respiratory exam: Present: clear to auscultation bilaterally. Absent: accessory muscle use, chest wall tenderness - Cardiovascular Cardiovascular exam: Present: RRR. Absent: systolic murmur, tachycardia - GI/Abdominal GI/Abdominal exam: Present: tenderness (There is some midepigastric tenderness present but no peritoneal signs), soft. Absent: rebound - Extremities Exam Extremities exam: Present: normal inspection, normal capillary refill - Back Exam Back exam: Present: normal inspection - Neurological Exam Neurological exam: Present: alert, oriented X3 Speech: Present: normal - Skin Skin exam: Present: normal color, warm Quality Measures - Stroke Symptom Onset Unknown: No Results - Labs CBC & BMP: 12/01/16 06:15 12/01/16 06:15 - Diagnostic Findings Procedure: CT Abdomen and Pelvis: image reviewed by me, report reviewed by me ( Enlarging fluid collection at the resection bed of the pancreas)
--- NOTE | 2016-12-01 08:59 | Gastrointestinal Consult Note ---
Assessment and Plan (1) Pancreatitis Status: Resolved Assessment and plan: 12/01-four-day history of abdominal pain worsening in severity with prior history of pancreatic mass/pancreatitis and stent placement. Findings on admission of leukocytosis and CT findings noted as below for possible pseudocyst formation. Discussion of possible transfer to [facility] for endoscopic drainage noted. Continue to monitor this time. Plan an addendum to followed by Dr. Shea. Current Visit: No Qualifiers: Chronicity: acute Pancreatitis type: other Acute pancreatitis complication: unspecified Qualified Code(s): K85.80 - Other acute pancreatitis without necrosis or infection History of Present Illness Chief complaint: Abdominal pain History of present illness: Mr. Escalera is a 46 year old male who was admitted to the hospital with 4 day history of abdominal pain. 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 Encarnacion. He is also followed at [facility] with history of stent placement which was last done in July of this year. Following that stent placement, patient developed an episode of pancreatitis and was placed inpatient in our facility for further treatment. That episode resolved fairly quickly however patient states that he has had 3 more episodes since July of this year. He was hospitalized at our facility once and again in [place]. He states that this episode of pancreatitis did not start out as usual. Probably 4 days ago, he states that he noticed when he would eat, he would have some dull epigastric discomfort that would come and go. He states that this continued every time he would eat or drink anything however on yesterday he had a sudden increase in his pain from dull to sharp and stabbing and radiated down his left abdomen. He initially felt this was possibly related to his prior surgery however the pain became uncontrolled and he presented to the emergency room for further evaluation. He denies any fever chills associated with this. He denies any nausea or vomiting. He recently had a surveillance CT done on November 26 which showed improvement in postoperative changes however development of a well-defined fluid collection in the tract along the greater curvature of the stomach near the fundus measuring 5.1 x 1.6 cm. 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 Also mention of a few subcentimeter lymph nodes which were on the prior study. On admission, his lipase level was at 642. He was also admitted with WBCs at 21 ,000. He has been afebrile since admission. Dr. Encarnacion was consulted with patient and is discussing possible transfer to [facility] for endoscopic cyst gastrostomy. Home Medications Medication Instructions Recorded Confirmed Type Pramipexole Di-HCl [Pramipexole 0.5 mg PO BEDTIME 04/25/16 12/01/16 History Dihydrochloride] Rosuvastatin Calcium [Crestor] 40 mg PO BEDTIME 04/25/16 12/01/16 History Senna Tab [Senokot] 25.8 mg PO BEDTIME 06/20/16 12/01/16 History Amlodipine Besylate 5 mg PO DAILY #30 tablet 08/10/16 12/01/16 Rx Insulin Aspart [NovoLOG] See Protocol SQ TID W/MEALS 09/24/16 12/01/16 History Insulin Degludec [Tresiba 92 unit SQ QAM 09/24/16 12/01/16 History Flextouch U-200] Allergies Allergy/AdvReac Type Severity Reaction Status Date / Time No Known Allergies Allergy Verified 11/30/16 22:06 Medical,Surgical,& Family Hx - Medical History Cardio: History of: Hypertension No history of: Aneurysm, Cardiac Dysrhythmia, Cerebrovascular Disease, Congenital Heart Disease, CHF, CAD, [place], Pacemaker, PVD, Valvular Heart Disease, Cardiovascular Problems Psychological: No history of: Anxiety Disorders, ADHD, Behavior Problems, Bipolar Disorder, Depression, Previous Suicide Attempt, Psychiatric/Substance Abuse Tx, Schizophrenia, Violent Behavior, Psychiatric Problems Neurology: No history of: Brain Aneurysm, Cerebral Hemorrhage, Cerebrovascular Accident , Cerebral Palsy, Dementia, Migraine, Multiple Sclerosis, Parkinson's Disease, Peripheral Neuropathy, Seizures, TIA, Vertigo, Neurologocal Cancer HEENT: No history of: Ear Problem, Eye Problem, Dental Problems, Glaucoma, Oral Cancer, HEENT Problems Endocrine: History of: Diabetes Mellitus (IDDM), Diabetes Mellitus (NIDDM) No history of: Adrenal Disease, Dyslipidemia, Thyroid Disorder, Endocrine Cancer, Endocrine Problems Rheumatology: No history of;: Fibromyalgia, Gout, Myasthenia Gravis, Psoriasis, Rheumatoid Arthritis, Sjogrens, Systemic Lupus Erythematosus, Rheumatological Problems Respiratory: History of: COPD, Obstructive Sleep Apnea (CPap) No history of: Asthma, Bronchitis, Intubation, Pulmonary Embolism, Pulmonary Hypertension, Pneumonia, Lung Cancer, Respiratory Problems Gastrointestinal: History of: Pancreatitis, GI Problems (percutaneous drain inserted at time of surgery in April) Musculoskeletal: History of: Back/Neck Problems No history of: Amputation, Degenerative Disk Disease, Herniated Disk, Osteoporosis, Musculoskeletal Cancer, Musculoskeletal Problems (OA) Hematology: No history of: Anemia, Blood Transfusion Reaction, Bleeding Problems, Clotting Problems, Sickle Cell Disease, Hematologic Cancer, Blood Disorders Reproductive: No histroy: Penile Disorder, Sexually Transmitted Disease, Reproductive Cancer, Reproductive Problems Other: No history of: Anesthesia Reactions, Anaphylaxis, Cancer, Eczema, HIV, Malignant Hyperthermia, MRSA, Vancomycin-Resistant Enterococci, Skin Problems, Miscellaneous Medical Problems - Surgical History Cardiac Surgeries: Sugical HX of: Cardiac Catheterization Patient Denies: Femoral-Popliteal Bypass Graft, Cardiac Surgery, Carotid Endarterectomy, Internal Defibrillator, Vascular Access Devices Thoracic Surgeries: Patient denies;: Kidney (Renal Surgery), Lithotripsy, Nephrectomy, Organ Transplant, Lobectomy Neurologic Surgeries: Patient denies: Brain Aneurysm, Cerebral Hemorrhage, Neurologic Surgery HEENT Surgeries: Patient denies: Carotid Endarterectomy, Eye Surgery, Thyroid Surgery, Tonsilectomy & Adenoidectomy Abdominal Surgeries: Surgical HX of: Abdominal Surgery (Pancreatectomy and spleenectomy), Splenectomy Patient denies: Appendectomy, Cholecystectomy, Colonoscopy, Gastric Bypass Surgery, EGD, Hernia Repair Reproductive Surgeries: Patient denies;: Breast Surgery, Cystoscopy, Genitourinary Surgery, Prostate Surgery, Vasectomy Orthopedic Surgeries: Patient denies;: Implanted Devices, Orthopedic Surgery, Spinal Surgery, Total Hip Replacement, Total Knee Replacement - Family History Family History: Reports;: Family Cancer (mother-breast, aunt-leukemia, brother- throat), Family Heart Disease (PARENTS), Family Hypertension Denies;: Family Anesthesia Reaction, Family Diabetes, Family Hematology, Family Psychiatric Problems, Family Stroke, Additional Family History - Social History Smoking Status: Current every day smoker Frequency of Alcohol Use: None Type of Drug Use: None 12 point system: reviewed and no additional remarkable complaints except as stated - Constitutional Constitutional: Present: as per HPI - EENT Eyes: Present: as per HPI Ears: Present: as per HPI Nose, mouth and throat: Present: as per HPI - Cardiovascular Cardiovascular: Present: as per HPI - Respiratory Respiratory: Present: as per HPI - Gastrointestinal Gastrointestinal: Present: as per HPI, abdominal pain - Genitourinary Genitourinary: Present: as per HPI - Musculoskeletal Musculoskeletal: Present: as per HPI - Neurological Neurological: Present: as per HPI - Psychiatric Psychiatric: Present: as per HPI - Endocrine Endocrine: Present: as per HPI - Hematologic/Lymphatic Hematologic/Lymphatic: Present: as per HPI Exam - Constitutional Vitals: Period Temp Pulse Resp BP Sys/Meraz Pulse Ox Last 24 Hr 96.9 F-99.0 F 85-113 16-22 128-147/71-102 91-100 General appearance: normal weight, no acute distress - Head Head exam: Present: normal inspection, normocephalic - Eye Eye exam: Present: other (Lids and conjunctivae are unremarkable). Absent: scleral icterus - ENT ENT exam: Present: normal exam, normal oropharynx - Neck Neck exam: Present: normal inspection - Respiratory Respiratory exam: Present: clear to auscultation bilaterally. Absent: rales, rhonchi, wheezes - Cardiovascular Cardiovascular exam: Present: regular rate and rhythm. Absent: diastolic murmur , JVD, systolic murmur - GI/Abdominal GI/Abdominal exam: Present: normal bowel sounds, tenderness, soft. Absent: ascites, distended, mass, organomegaly - Extremities Exam Extremities exam: Present: normal inspection, full ROM - Back Exam Back exam: Present: normal inspection - Neurological Exam Neurological exam: Present: alert, oriented X3 - Psychiatric Psychiatric exam: Present: normal affect, normal mood - Skin Skin exam: Present: normal color, warm, dry Results - Labs CBC & BMP: 12/01/16 06:15 12/01/16 06:15 Lab Results: I have reviewed the past 24 hour labs - Diagnostic Findings Procedure: CT Abdomen and Pelvis: report reviewed by me Quality Measures - Stroke Symptom Onset Unknown: No
--- NOTE | 2016-12-01 15:50 | Hospitalist Progress Note ---
Exam - Constitutional Vitals: Period Temp Pulse Resp BP Sys/Meraz Pulse Ox Last 24 Hr 96.9 F-99.6 F 85-113 16-22 125-147/71-102 91-100 Results - Labs CBC & BMP: 12/01/16 06:15 12/01/16 06:15 Quality Measures - Stroke Symptom Onset Unknown: No
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
[2016-12-02] MEDS: HYDROmorphone 2 MG/1 ML VIAL IV PRN ×11 (00:23→23:47)
[2016-12-02] MEDS ORDERED: ALBUTEROL 2.5 MG/3 ML NEB RESP TX PRN (00:29)
[2016-12-02] MEDS: INSULIN REGULAR 100 UNIT/ML SUBCUT SCH ×5 (00:47→23:54)
[2016-12-02] MEDS: SODIUM CHLORIDE 0.9% 1,000 ML IV SCH ×2 (01:52→15:05)
[2016-12-02] MEDS: LEVOFLOXACIN INJ 500 MG in PREMIX 1 EACH IV SCH (01:54)
[2016-12-02] MEDS: metroNIDAZOLE INJ 500 MG in PREMIX 1 EACH IV SCH ×3 (03:01→18:37)
[2016-12-02 07:21] LABS: Basophils # 0.1 10*3/uL (0.0-0.2); Basophils % 0.4 % (0.0-0.8); Eosinophils # 0.1 10*3/uL (0.0-0.87); Eosinophils % 0.3 % (0.00-10.9); Hemoglobin 14.7 GM/DL (14.0-18.0); Immature Granulocytes % 0.6 %; Immature Granulocytes Absolute 0.16 #; Lymphocytes # 3.1 10*3/uL (1.4-4.0); Lymphocytes % 12.4 % (21.2-54.2); Mean Corpuscular HGB Conc 34.2 GM/DL (32-36); Mean Corpuscular Hemoglobin 31 PG (27-34); Mean Platelet Volume 11.5 FL (9.6-12.0); Neutrophils # 18.3 10*3/uL (1.4-7.4); Neutrophils % 74.3 % (38.7-73.9); Platelet Count 331 T/CUMM (130-400); Red Blood Count 4.78 MC/CUMM (3.8-5.5); Red Cell Distribution Width 14.7 % (9.3-17.3); White Blood Count 24.7 T/CUMM (4-12)
[2016-12-02 07:44] LABS: Band Neutrophils 1 % (0-10); Lymphocytes 13 % (20-55); Segmented Neutrophils 77 % (50-85); Total Cells Counted 100
[2016-12-02 07:45] LABS: Giant Platelets Few; Hypochromasia 1+; Platelet Estimate Adequate
[2016-12-02 07:59] LABS: Calcium 8.1 MG/DL (8.5-10.1); Magnesium 1.8 MG/DL (1.8-2.4); Osmolality,Calculated 271.2 MOS/KG (273-304); Potassium 3.9 MMOL/L (3.5-5.1)
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
--- NOTE | 2016-12-02 17:16 | Hospitalist Progress Note ---
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 Patient still with abdominal pain. Exam - Constitutional Vitals: Period Temp Pulse Resp BP Sys/Meraz Pulse Ox Last 24 Hr 97.6 F-99.3 F 87-111 16-20 104-115/50-69 90-97 General appearance: normal weight - Head Head exam: Present: normocephalic, atraumatic - Eye Eye exam: Present: EOMI Pupils: Present: LOUISE - ENT ENT exam: Present: normal exam - Neck Neck exam: Present: normal inspection - Respiratory Respiratory exam: Present: clear to auscultation bilaterally. Absent: rhonchi, wheezes - Cardiovascular Cardiovascular exam: Present: regular rate and rhythm - GI/Abdominal GI/Abdominal exam: Present: normal bowel sounds, soft. Absent: tenderness, rebound - Extremities Exam Extremities exam: Present: normal inspection - Back Exam Back exam: Present: normal inspection - Neurological Exam Neurological exam: Present: alert, oriented X3 - Psychiatric Psychiatric exam: Present: normal affect, normal mood - Skin Skin exam: Present: warm, intact Results - Labs CBC & BMP: 12/02/16 04:44 12/02/16 04:44 Quality Measures - Stroke Symptom Onset Unknown: No
[2016-12-03] MEDS: HYDROmorphone 2 MG/1 ML VIAL IV PRN ×12 (02:05→23:19)
[2016-12-03] MEDS: SODIUM CHLORIDE 0.9% 1,000 ML IV SCH ×3 (02:08→15:11)
[2016-12-03] MEDS: LEVOFLOXACIN INJ 500 MG in PREMIX 1 EACH IV SCH (02:11)
[2016-12-03] MEDS: metroNIDAZOLE INJ 500 MG in PREMIX 1 EACH IV SCH ×3 (03:13→18:36)
[2016-12-03 06:25] LABS: Basophils # 0.1 10*3/uL (0.0-0.2); Basophils % 0.4 % (0.0-0.8); Eosinophils # 0.2 10*3/uL (0.0-0.87); Eosinophils % 0.7 % (0.00-10.9); Hematocrit 42.6 VOL% (42.0-52.0); Hemoglobin 14.5 GM/DL (14.0-18.0); Immature Granulocytes % 0.7 %; Immature Granulocytes Absolute 0.16 #; Lymphocytes # 1.9 10*3/uL (1.4-4.0); Lymphocytes % 8.2 % (21.2-54.2); Mean Corpuscular Hemoglobin 31 PG (27-34); Mean Corpuscular Volume 89.7 FL (87-102); Mean Platelet Volume 10.7 FL (9.6-12.0); Monocytes % 13.5 % (1.7-12.7); Neutrophils # 17.3 10*3/uL (1.4-7.4); Neutrophils % 76.5 % (38.7-73.9); Platelet Count 352 T/CUMM (130-400); Red Blood Count 4.75 MC/CUMM (3.8-5.5); Red Cell Distribution Width 14.6 % (9.3-17.3); White Blood Count 22.6 T/CUMM (4-12)
[2016-12-03] MEDS: INSULIN REGULAR 100 UNIT/ML SUBCUT SCH ×3 (06:40→18:25)
[2016-12-03 07:02] LABS: Calcium 8.2 MG/DL (8.5-10.1); Magnesium 1.9 MG/DL (1.8-2.4); Osmolality,Calculated 268.2 MOS/KG (273-304); Potassium 3.6 MMOL/L (3.5-5.1)
[2016-12-03 07:06] LABS: Eosinophils 1 % (0-10); Giant Platelets Few; Hypochromasia 1+; Lymphocytes 10 % (20-55); Platelet Estimate Adequate; Segmented Neutrophils 72 % (50-85); Total Cells Counted 100
[2016-12-03 07:07] LABS: Microcytosis 1+
--- NOTE | 2016-12-03 08:34 | General Surgery Progress Note ---
Assessment and Plan (1) Fluid collection of pancreas Status: Acute Assessment and plan: Back to NPO. Transfer to [facility] for cyst-gastrostomy. Has been discussed with Dr. Steele at [facility]. Current Visit: Yes Subjective Patient reports: Present: no new complaints, still having pain, nausea, afebrile. Absent: vomiting Exam - Constitutional Vitals: Period Temp Pulse Resp BP Sys/Meraz Pulse Ox Last 24 Hr 97.8 F-100.0 F 87-99 16-20 99-120/61-70 90-98 General appearance: no acute distress, over weight - Head Head exam: Present: normal inspection, normocephalic - Eye Eye exam: Present: EOMI. Absent: scleral icterus Pupils: Present: LOUISE - ENT ENT exam: Present: normal exam Mouth exam: Present: normal external inspection, normal voice - Neck Neck exam: Present: normal inspection, trachea midline - Respiratory Respiratory exam: Present: clear to auscultation bilaterally. Absent: accessory muscle use, chest wall tenderness - Cardiovascular Cardiovascular exam: Present: RRR. Absent: systolic murmur, tachycardia - GI/Abdominal GI/Abdominal exam: Present: normal bowel sounds, tenderness (no peritoneal signs.), soft. Absent: rebound - Extremities Exam Extremities exam: Present: normal inspection, normal capillary refill - Back Exam Back exam: Present: normal inspection - Neurological Exam Neurological exam: Present: alert, oriented X3 Speech: Present: normal - Skin Skin exam: Present: normal color, warm Results - Labs CBC & BMP: 12/03/16 06:05 12/03/16 06:05 Quality Measures - Stroke Symptom Onset Unknown: No
--- NOTE | 2016-12-03 08:45 | Gastrointestinal Progress Note ---
Assessment and Plan (1) Pancreatitis Status: Resolved Assessment and plan: 12/03-no changes at present time. Low-grade fever this morning. Awaiting transfer to [facility]. Plan an addendum follow Dr. Shea. 12/02-continued abdominal pain, no complaints of nausea or vomiting. Leukocytosis noted at 24,000. Low-grade fever last night. Continue to monitor this time. Plan an addendum to followed by Dr. Shea. 12/01-four-day history of abdominal pain worsening in severity with prior history of pancreatic mass/pancreatitis and stent placement. Findings on admission of leukocytosis and CT findings noted as below for possible pseudocyst formation. Discussion of possible transfer to [facility] for endoscopic drainage noted. Continue to monitor this time. Plan an addendum to followed by Dr. Shea. Current Visit: No Qualifiers: Chronicity: acute Pancreatitis type: other Acute pancreatitis complication: unspecified Qualified Code(s): K85.80 - Other acute pancreatitis without necrosis or infection Gastroenterology - PN: Subj Interval history: CC: Pancreatitis Patient is seen awake and alert lying in bed. States he has had no change in his pain level or symptoms at this time. He was febrile with a temp of 100 this morning. Leukocytosis remains with WBCs at 22,000. Continued with abdominal pain but does deny nausea vomiting. He is still currently waiting to transfer to [facility] for possible cyst gastrostomy. Abdomen is soft, tender to palpation. ROS: Denies shortness breath or chest pain Exam (Progress Note) - Constitutional Vitals: Period Temp Pulse Resp BP Sys/Meraz Pulse Ox Last 24 Hr 97.8 F-100.0 F 87-99 16-20 99-120/61-70 90-98 - Other Additional findings: General appearance: normal weight, no acute distress - Head Head exam: Present: normal inspection, normocephalic - Eye Eye exam: Present: other (Lids and conjunctivae are unremarkable). Absent: scleral icterus - ENT ENT exam: Present: normal exam, normal oropharynx - Neck Neck exam: Present: normal inspection - Respiratory Respiratory exam: Present: clear to auscultation bilaterally. Absent: rales, rhonchi, wheezes - Cardiovascular Cardiovascular exam: Present: regular rate and rhythm. Absent: diastolic murmur , JVD, systolic murmur - GI/Abdominal GI/Abdominal exam: Present: normal bowel sounds, tenderness, soft. Absent: ascites, distended, mass, organomegaly - Extremities Exam Extremities exam: Present: normal inspection, full ROM - Back Exam Back exam: Present: normal inspection - Neurological Exam Neurological exam: Present: alert, oriented X3 - Psychiatric Psychiatric exam: Present: normal affect, normal mood - Skin Skin exam: Present: normal color, warm, dry Results - Labs CBC & BMP: 12/03/16 06:05 12/03/16 06:05 Lab Results: I have reviewed the past 24 hour labs
--- NOTE | 2016-12-03 17:30 | Hospitalist Progress Note ---
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 Working on transfer to [facility], possibly tomorrow. Exam - Constitutional Vitals: Period Temp Pulse Resp BP Sys/Meraz Pulse Ox Last 24 Hr 97.5 F-100.0 F 84-99 18-20 99-120/62-70 90-98 General appearance: normal weight - Head Head exam: Present: normocephalic, atraumatic - Eye Eye exam: Present: EOMI Pupils: Present: LOUISE - ENT ENT exam: Present: normal exam - Neck Neck exam: Present: normal inspection - Respiratory Respiratory exam: Present: clear to auscultation bilaterally. Absent: wheezes - Cardiovascular Cardiovascular exam: Present: regular rate and rhythm - GI/Abdominal GI/Abdominal exam: Present: normal bowel sounds, tenderness, soft. Absent: rebound - Extremities Exam Extremities exam: Present: normal inspection - Back Exam Back exam: Present: normal inspection - Neurological Exam Neurological exam: Present: alert, oriented X3 - Psychiatric Psychiatric exam: Present: normal affect, normal mood - Skin Skin exam: Present: warm, intact Results - Labs CBC & BMP: 12/03/16 06:05 12/03/16 06:05 Quality Measures - Stroke Symptom Onset Unknown: No
[2016-12-04] MEDS: HYDROmorphone 2 MG/1 ML VIAL IV PRN ×9 (01:33→22:33)
[2016-12-04] MEDS: LEVOFLOXACIN INJ 500 MG in PREMIX 1 EACH IV SCH (02:55)
[2016-12-04] MEDS: SODIUM CHLORIDE 0.9% 1,000 ML IV SCH ×2 (02:59→15:39)
[2016-12-04] MEDS: INSULIN REGULAR 100 UNIT/ML SUBCUT SCH ×4 (03:25→17:59)
[2016-12-04] MEDS: metroNIDAZOLE INJ 500 MG in PREMIX 1 EACH IV SCH ×3 (03:58→18:44)
--- NOTE | 2016-12-04 08:59 | Gastrointestinal Progress Note ---
Assessment and Plan (1) Pancreatitis Status: Resolved Assessment and plan: 12/04-continued abdominal pain requiring analgesic routinely. Still awaiting transfer to [facility]. Afebrile. Plan an addendum to followed by Dr. Shea 12/03-no changes at present time. Low-grade fever this morning. Awaiting transfer to [facility]. Plan an addendum follow Dr. Shea. 12/02-continued abdominal pain, no complaints of nausea or vomiting. Leukocytosis noted at 24,000. Low-grade fever last night. Continue to monitor this time. Plan an addendum to followed by Dr. Shea. 12/01-four-day history of abdominal pain worsening in severity with prior history of pancreatic mass/pancreatitis and stent placement. Findings on admission of leukocytosis and CT findings noted as below for possible pseudocyst formation. Discussion of possible transfer to [facility] for endoscopic drainage noted. Continue to monitor this time. Plan an addendum to followed by Dr. Shea. Current Visit: No Qualifiers: Chronicity: acute Pancreatitis type: other Acute pancreatitis complication: unspecified Qualified Code(s): K85.80 - Other acute pancreatitis without necrosis or infection Gastroenterology - PN: Subj Interval history: CC: Pancreatitis Patient is seen, awake and alert lying in bed. States he has had no changes in his abdominal pain at this time. He does deny any nausea or vomiting. Nursing staff states that patient is requesting pain medication every 2-3 hours around- the-clock. There is no definitive word on transfer to [facility] at this time however patient states he was informed they working on transportation there. Abdomen is soft, nontender. ROS: Denies shortness breath or chest pain Exam (Progress Note) - Constitutional Vitals: Period Temp Pulse Resp BP Sys/Meraz Pulse Ox Last 24 Hr 96.4 F-98.0 F 78-89 20-20 95-132/54-69 92-96 - Other Additional findings: General appearance: normal weight, no acute distress - Head Head exam: Present: normal inspection, normocephalic - Eye Eye exam: Present: other (Lids and conjunctivae are unremarkable). Absent: scleral icterus - ENT ENT exam: Present: normal exam, normal oropharynx - Neck Neck exam: Present: normal inspection - Respiratory Respiratory exam: Present: clear to auscultation bilaterally. Absent: rales, rhonchi, wheezes - Cardiovascular Cardiovascular exam: Present: regular rate and rhythm. Absent: diastolic murmur , JVD, systolic murmur - GI/Abdominal GI/Abdominal exam: Present: normal bowel sounds, tenderness, soft. Absent: ascites, distended, mass, organomegaly - Extremities Exam Extremities exam: Present: normal inspection, full ROM - Back Exam Back exam: Present: normal inspection - Neurological Exam Neurological exam: Present: alert, oriented X3 - Psychiatric Psychiatric exam: Present: normal affect, normal mood - Skin Skin exam: Present: normal color, warm, dry Results - Labs CBC & BMP: 12/03/16 06:05 12/03/16 06:05 Lab Results: I have reviewed the past 24 hour labs
--- NOTE | 2016-12-04 15:14 | General Surgery Progress Note ---
Assessment and Plan (1) Fluid collection of pancreas Status: Acute Assessment and plan: We have had issues with transfer of the patient to [facility] for the procedure. Patient has been accepted and scheduled by Dr. Steele as an outpatient endoscopic cyst gastrostomy procedure but the hospital is running into insurance problems and transportation problems that are pending him from getting where he needs to go. This is being worked on actively by case management. We will continue to treat the patient here until we can get him down for what he needs at [facility]. Current Visit: Yes Subjective Patient reports: Present: no new complaints, feels better, pain is less, afebrile. Absent: nausea, vomiting Exam - Constitutional Vitals: Period Temp Pulse Resp BP Sys/Meraz Pulse Ox Last 24 Hr 96.4 F-98.5 F 78-89 20-20 95-132/54-68 89-96 General appearance: no acute distress, over weight - Head Head exam: Present: normal inspection, normocephalic - Eye Eye exam: Present: EOMI. Absent: scleral icterus Pupils: Present: LOUISE - ENT ENT exam: Present: normal exam Mouth exam: Present: normal external inspection, normal voice - Neck Neck exam: Present: normal inspection, trachea midline - Respiratory Respiratory exam: Present: clear to auscultation bilaterally. Absent: accessory muscle use, chest wall tenderness - Cardiovascular Cardiovascular exam: Present: RRR. Absent: systolic murmur, tachycardia - GI/Abdominal GI/Abdominal exam: Present: tenderness (Decreased tenderness midepigastric region), soft. Absent: rebound - Extremities Exam Extremities exam: Present: normal inspection, normal capillary refill - Back Exam Back exam: Present: normal inspection - Neurological Exam Neurological exam: Present: alert, oriented X3 Speech: Present: normal - Skin Skin exam: Present: normal color, warm Results - Labs CBC & BMP: 12/03/16 06:05 12/03/16 06:05 Quality Measures - Stroke Symptom Onset Unknown: No Specialty Discharge - Follow Up or Referrals
--- NOTE | 2016-12-04 16:41 | Hospitalist Progress Note ---
Assessment and Plan (1) Pancreatitis Status: Resolved Current Visit: No Qualifiers: Chronicity: acute Pancreatitis type: other Acute pancreatitis complication: unspecified Qualified Code(s): K85.80 - Other acute pancreatitis without necrosis or infection (2) Leukocytosis Status: Acute Assessment and plan: Remains elevated On IV abx Has fluid filled cyst that needs to be drained Current Visit: No (3) DM2 (diabetes mellitus, type 2) Status: Chronic Assessment and plan: SSI Current Visit: No Qualifiers: Diabetes mellitus assisted insulin use: without assisted use (4) HTN (hypertension) Status: Chronic Current Visit: No Qualifiers: Hypertension type: essential hypertension Qualified Code(s): I10 - Essential (primary) hypertension (5) Fluid collection of pancreas Status: Acute Assessment and plan: Plan is for transfer to [facility] for possible EUS cyst gastrostomy Continue with IV levofloxacin and flagyl, IV fluids and pain control Current Visit: Yes Hospitalist: Subjective Interval history: No acute events overnight. Patient still with abdominal pain. Still attempting to get patient transferred to [facility] for procedure. Exam - Constitutional Vitals: Period Temp Pulse Resp BP Sys/Meraz Pulse Ox Last 24 Hr 96.4 F-98.5 F 78-89 20-20 95-132/54-68 89-96 General appearance: normal weight - Head Head exam: Present: normocephalic, atraumatic - Eye Eye exam: Present: EOMI Pupils: Present: LOUISE - ENT ENT exam: Present: normal exam - Neck Neck exam: Present: normal inspection - Respiratory Respiratory exam: Present: clear to auscultation bilaterally. Absent: rhonchi, wheezes - Cardiovascular Cardiovascular exam: Present: regular rate and rhythm - GI/Abdominal GI/Abdominal exam: Present: normal bowel sounds, tenderness, soft. Absent: rebound - Extremities Exam Extremities exam: Present: normal inspection - Back Exam Back exam: Present: normal inspection - Neurological Exam Neurological exam: Present: alert, oriented X3 - Psychiatric Psychiatric exam: Present: normal affect, normal mood - Skin Skin exam: Present: warm, intact Results - Labs CBC & BMP: 12/03/16 06:05 12/03/16 06:05 Quality Measures - Stroke Symptom Onset Unknown: No Specialty Discharge - Follow Up or Referrals
[2016-12-05] MEDS: HYDROmorphone 2 MG/1 ML VIAL IV PRN ×5 (00:29→09:03)
[2016-12-05] MEDS: SODIUM CHLORIDE 0.9% 1,000 ML IV SCH ×2 (01:35→08:55)
[2016-12-05] MEDS: LEVOFLOXACIN INJ 500 MG in PREMIX 1 EACH IV SCH (01:37)
[2016-12-05] MEDS: INSULIN REGULAR 100 UNIT/ML SUBCUT SCH ×2 (02:26→06:53)
[2016-12-05] MEDS: metroNIDAZOLE INJ 500 MG in PREMIX 1 EACH IV SCH (02:47)
--- NOTE | 2016-12-05 04:12 | General Surgery Progress Note ---
Assessment and Plan (1) Fluid collection of pancreas Status: Acute Assessment and plan: It sounds like we have almost achieved complete organization of transfer to [facility] for the cyst gastrostomy. We are awaiting final approval and acceptance by an ambulance service. The patient is frustrated understandably and would like to go to the [facility] in [place] if he is not able to go to [facility] today. We will follow-up with case management but hopefully we can arrange transport and he can get the cyst gastrostomy today. Current Visit: Yes Subjective Patient reports: Present: no new complaints, still having pain, afebrile. Absent: nausea, vomiting Narrative: Patient had a low-grade temp overnight but is afebrile this morning and his tachycardia has resolved. Exam - Constitutional Vitals: Period Temp Pulse Resp BP Sys/Meraz Pulse Ox Last 24 Hr 96.4 F-100.3 F 75-89 18-20 95-123/54-69 89-96 General appearance: no acute distress, over weight - Head Head exam: Present: normal inspection, normocephalic - Eye Eye exam: Present: EOMI. Absent: scleral icterus Pupils: Present: LOUISE - ENT ENT exam: Present: normal exam Mouth exam: Present: normal external inspection, normal voice - Neck Neck exam: Present: normal inspection, trachea midline - Respiratory Respiratory exam: Present: clear to auscultation bilaterally. Absent: accessory muscle use, chest wall tenderness - Cardiovascular Cardiovascular exam: Present: RRR. Absent: systolic murmur, tachycardia - GI/Abdominal GI/Abdominal exam: Present: normal bowel sounds, tenderness (Unchanged from yesterday), soft. Absent: rebound - Extremities Exam Extremities exam: Present: normal inspection, normal capillary refill - Back Exam Back exam: Present: normal inspection - Neurological Exam Neurological exam: Present: alert, oriented X3 Speech: Present: normal - Skin Skin exam: Present: normal color, warm Results - Labs CBC & BMP: 12/03/16 06:05 12/03/16 06:05 Quality Measures - Stroke Symptom Onset Unknown: No Specialty Discharge - Follow Up or Referrals
[2016-12-05 07:45] VITALS: BP 122/72
[2016-12-05 08:06] LABS: Basophils # 0.1 10*3/uL (0.0-0.2); Basophils % 0.5 % (0.0-0.8); Eosinophils # 0.4 10*3/uL (0.0-0.87); Hematocrit 41.2 VOL% (42.0-52.0); Hemoglobin 14.5 GM/DL (14.0-18.0); Immature Granulocytes % 0.9 %; Immature Granulocytes Absolute 0.17 #; Lymphocytes # 1.4 10*3/uL (1.4-4.0); Lymphocytes % 6.9 % (21.2-54.2); Mean Corpuscular HGB Conc 35.2 GM/DL (32-36); Mean Corpuscular Hemoglobin 31 PG (27-34); Mean Platelet Volume 10.8 FL (9.6-12.0); Monocytes # 3.2 10*3/uL (0.11-0.8); Monocytes % 15.9 % (1.7-12.7); Neutrophils # 14.6 10*3/uL (1.4-7.4); Neutrophils % 73.8 % (38.7-73.9); Platelet Count 329 T/CUMM (130-400); Red Blood Count 4.68 MC/CUMM (3.8-5.5); Red Cell Distribution Width 14.5 % (9.3-17.3); White Blood Count 19.8 T/CUMM (4-12)
[2016-12-05 08:25] LABS: Eosinophils 7 % (0-10); Giant Platelets Few; Hypochromasia Slight; Lymphocytes 9 % (20-55); Platelet Estimate Adequate; Segmented Neutrophils 67 % (50-85); Total Cells Counted 100
--- NOTE | 2016-12-05 08:48 | Discharge Summary ---
Hospital Course - Hospital Course Hospital Course: Mr. Escalera is a 46 year old male with past medical history significant for diabetes pancreatitis hyperlipidemia who is in his normal state of health until approximately 4 days ago. Patient reports a gradual onset of pain that slowly increased in intensity. It did not occur like previous times of pancreatitis where it came own all of a sudden. Patient reports that the pain is epigastric and that is really intense. He denies any nausea at this time. He has been feeling hot at times but has not checked his temperature. Patient CT scan and that was done in the emergency room showed a 6 cm cystic fluid collection posterior to the gastric fundus suggestive of pseudocyst. 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 Encarnacion. He is also followed at [facility] with history of stent placement which was last done in July of this year. Following that stent placement, patient developed an episode of pancreatitis and was placed inpatient in our facility for further treatment. That episode resolved fairly quickly however patient states that he has had 3 more episodes since July of this year. Gastroenterology was consulted. Patient with leukocytosis to the 20s, started on levofloxacin and metronidazole. Surgery was consulted. Recommended a cyst gastrostomy which cannot be performed at this facility. He will be discharged to [facility] today so this procedure can be performed. - Time spent with patient Time with patient DS: Greater than 30 minutes (45) Diagnosis - Discharge Diagnosis (1) Pancreatitis Status: Resolved (2) Leukocytosis Status: Acute (3) DM2 (diabetes mellitus, type 2) Status: Chronic (4) HTN (hypertension) Status: Chronic (5) Fluid collection of pancreas Status: Acute Specialty Discharge - Follow Up or Referrals Discharge Plan - Discharge Data Disposition: Disch/Xfer-[facility] Condition at Discharge: Stable - Discharge Medications New Dextrose 50% [D50] 25 gm IV PRN PRN syringe PRN Reason: Hypoglycemia with IV access Glucagon 1 mg IM PRN PRN vial PRN Reason: Hypoglycemia w/o IV access HYDROmorphone INJ [Dilaudid Inj] 2 mg IV Q2H PRN vial PRN Reason: Pain Severe (8-10) Levofloxacin Inj [Levaquin Inj] 500 mg IV Q24H Ondansetron Inj [Zofran Inj] 4 mg IV Q4H PRN vial PRN Reason: Nausea/Vomiting metroNIDAZOLE INJ [Flagyl Inj] 500 mg IV Q8H Albuterol Neb [Proventil Neb] 2.5 mg RESP TX RT Q6H PRN PRN Reason: Shortness Of Breath/Wheezing Insulin Regular [HumuLIN R] See Protocol SUBCUT Q6HR unit Discontinued Pramipexole Di-HCl [Pramipexole Dihydrochloride] 0.5 mg PO BEDTIME Insulin Aspart [NovoLOG] See Protocol SQ TID W/MEALS Rosuvastatin Calcium [Crestor] 40 mg PO BEDTIME Senna Tab [Senokot] 25.8 mg PO BEDTIME Amlodipine Besylate 5 mg PO DAILY #30 tablet Insulin Degludec [Tresiba Flextouch U-200] 92 unit SQ QAM - Follow Up or Referral - Forms/Instructions Instructions: Pancreatitis (DC), Leukocytosis (DC) Exam - Constitutional Vitals: Period Temp Pulse Resp BP Sys/Meraz Pulse Ox Last 24 Hr 97.8 F-100.3 F 75-89 18-20 99-123/57-72 89-96 General appearance: normal weight - Head Head exam: Present: normocephalic, atraumatic - Eye Eye exam: Present: EOMI Pupils: Present: LOUISE - ENT ENT exam: Present: normal exam - Neck Neck exam: Present: normal inspection - Respiratory Respiratory exam: Present: clear to auscultation bilaterally - Cardiovascular Cardiovascular exam: Present: regular rate and rhythm - GI/Abdominal GI/Abdominal exam: Present: normal bowel sounds, soft. Absent: tenderness, rebound - Extremities Exam Extremities exam: Present: normal inspection - Back Exam Back exam: Present: normal inspection - Neurological Exam Neurological exam: Present: alert, oriented X3 - Psychiatric Psychiatric exam: Present: normal affect, normal mood - Skin Skin exam: Present: warm, intact Discharge Results Procedures and tests throughout hospitalization: Pending Orders 11/30/16 22:46 Blood Culture Stat Labs on day of discharge: Labs from last 24 hours 12/05/16 12/05/16 12/05/16 08:00 06:53 02:08 WBC 19.8 H RBC 4.68 Hgb 14.5 Hct 41.2 L MCV 88.0 MCH 31 MCHC 35.2 RDW 14.5 Plt Count 329 MPV 10.8 Neut % (Auto) 73.8 Lymph % (Auto) 6.9 L [place] % (Auto) 15.9 H Eos % (Auto) 2.0 Baso % (Auto) 0.5 Neut # (Auto) 14.6 H Lymph # (Auto) 1.4 [place] # (Auto) 3.2 H Eos # (Auto) 0.4 Baso # (Auto) 0.1 Total Counted 100 Immature Gran % 0.9 Nucleated RBC % 0.0 Immature Gran # 0.17 Segmented Neutrophils 67 Lymphocytes 9 L Monocytes 17 H Eosinophils 7 Nucleated RBCs # 0.00 Platelet Estimate Adequate Giant Platelets Few Immature Plt Fraction 0.0 Hypochromasia Slight POC Glucose 124 H 144 H 12/04/16 12/04/16 12/04/16 17:49 16:09 11:34 WBC RBC Hgb Hct MCV MCH MCHC RDW Plt Count MPV Neut % (Auto) Lymph % (Auto) [place] % (Auto) Eos % (Auto) Baso % (Auto) Neut # (Auto) Lymph # (Auto) [place] # (Auto) Eos # (Auto) Baso # (Auto) Total Counted Immature Gran % Nucleated RBC % Immature Gran # Segmented Neutrophils Lymphocytes Monocytes Eosinophils Nucleated RBCs # Platelet Estimate Giant Platelets Immature Plt Fraction Hypochromasia POC Glucose 173 H 154 H 142 H Preliminary micro results at discharge 12/01/16 06:15 Blood Culture - Preliminary Blood No growth at 3 days 12/01/16 06:15 Blood Culture - Preliminary Blood No growth at 3 days DS: Provider Date of admission: 12/01/16 01:40 Primary care physician: Manny Campos MD Attending physician on admission: Doyle Chakraborty MD Consults: 12/01/16 01:40 Consult to Physician [CONS] Routine Comment: Consulting Provider: Enoc Shea Person Notified: HAILEY FORBES Date Notified: 12/01/16 Time Notified: 09:18 Consult to Physician [CONS] Routine Comment: PANCREATIS Consulting Provider: Doug Encarnacion Person Notified: Terri Date Notified: 12/01/16 Time Notified: 09:19 12/02/16 08:25 Consult to Case Mgmt/Social Srvs [CONS] Routine Reason for Case Mgmt/Social Srvs: Discharge Planning Consult Comment: pt for transfer to [facility] on /Thursday of this week Discharging clinician: Eli Zelaya MD
--- NOTE | 2016-12-05 09:04 | Gastrointestinal Progress Note ---
Assessment and Plan (1) Pancreatitis Status: Resolved Assessment and plan: 12/05-still awaiting transfer to [facility]. Low-grade fever overnight. No changes at present time. Plan an addendum to followed by Dr. Shea. 12/04-continued abdominal pain requiring analgesic routinely. Still awaiting transfer to [facility]. Afebrile. Plan an addendum to followed by Dr. Shea 12/03-no changes at present time. Low-grade fever this morning. Awaiting transfer to [facility]. Plan an addendum follow Dr. Shea. 12/02-continued abdominal pain, no complaints of nausea or vomiting. Leukocytosis noted at 24,000. Low-grade fever last night. Continue to monitor this time. Plan an addendum to followed by Dr. Shea. 12/01-four-day history of abdominal pain worsening in severity with prior history of pancreatic mass/pancreatitis and stent placement. Findings on admission of leukocytosis and CT findings noted as below for possible pseudocyst formation. Discussion of possible transfer to [facility] for endoscopic drainage noted. Continue to monitor this time. Plan an addendum to followed by Dr. Shea. Current Visit: No Qualifiers: Qualified Code(s): K85.80 - Other acute pancreatitis without necrosis or infection Gastroenterology - PN: Subj Interval history: CC: Pancreatitis Patient is seen lying in bed awake and alert. States that he had the worst episode of pain last night and required considerable amount of pain medication to get this under control. He still denies any nausea or vomiting. WBCs are down slightly at 19,000. He is noted to have ran low-grade fever last night at 100.3. He is currently still waiting for pending transfer to [facility] for cyst gastrostomy however if this is unable to be arranged the patient is requesting to go to [facility]. Abdomen is soft, tender to palpation. ROS: Denies shortness breath or chest pain Exam (Progress Note) - Constitutional Vitals: Period Temp Pulse Resp BP Sys/Meraz Pulse Ox Last 24 Hr 97.8 F-100.3 F 75-89 18-20 99-123/57-72 89-96 - Other Additional findings: General appearance: normal weight, no acute distress - Head Head exam: Present: normal inspection, normocephalic - Eye Eye exam: Present: other (Lids and conjunctivae are unremarkable). Absent: scleral icterus - ENT ENT exam: Present: normal exam, normal oropharynx - Neck Neck exam: Present: normal inspection - Respiratory Respiratory exam: Present: clear to auscultation bilaterally. Absent: rales, rhonchi, wheezes - Cardiovascular Cardiovascular exam: Present: regular rate and rhythm. Absent: diastolic murmur , JVD, systolic murmur - GI/Abdominal GI/Abdominal exam: Present: normal bowel sounds, tenderness, soft. Absent: ascites, distended, mass, organomegaly - Extremities Exam Extremities exam: Present: normal inspection, full ROM - Back Exam Back exam: Present: normal inspection - Neurological Exam Neurological exam: Present: alert, oriented X3 - Psychiatric Psychiatric exam: Present: normal affect, normal mood - Skin Skin exam: Present: normal color, warm, dry Results - Labs CBC & BMP: 12/05/16 08:00 12/03/16 06:05 Lab Results: I have reviewed the past 24 hour labs Specialty Discharge - Follow Up or Referrals
== END 2016-12-05 09:10 | disposition hospice, home (50) | DRG 438 ==
LOC: N.ED 21:55 → SUATTDRO 12-01 01:40 → N.EDINP 12-01 01:40 → N.5E 12-01 02:00
PROVIDERS: ADMIT Internal Medicine; ATTEND Internal Medicine

== ENCOUNTER 2016-12-05 20:45 | Observation (INO) ==
[2016-12-05] MEDS ORDERED: ZALEPLON 5 MG CAPSULE PO PRN (21:10)
[2016-12-05] MEDS ORDERED: ONDANSETRON 4 MG/2 ML VIAL IV PRN ×2 (21:10→21:12)
[2016-12-05] MEDS ORDERED: DEXTROSE 50% 25 GM/50 ML SYRINGE IV PRN (21:12)
[2016-12-05] MEDS ORDERED: GLUCAGON 1 MG VIAL IM PRN (21:12)
[2016-12-05] MEDS ORDERED: ALBUTEROL 2.5 MG/3 ML NEB RESP TX PRN (21:12)
--- NOTE | 2016-12-05 21:19 | Hospitalist History & Physical ---
Assessment and Plan (1) Fluid collection of pancreas Status: Acute Assessment and plan: The patient has returned from [facility] and now has gastro-cystic stent placement. The patient will continue on IV antibiotics and IV narcotic pain relief. I am going to continue the patient's IV hydration and follow-up urine output later. Will recheck laboratories in the morning. 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 Escalera is a 46 year old male with acute pancreatitis. The patient was transferred to [facility] earlier this week so that he could have a gastro-cystic stent placed. The procedure was successful and the patient states that his anterior abdominal pain has begun to improve. The patient states that he has some mid back pain which he did not have previously. The patient denies fever, chills, palpitations, angina. The patient has no shortness of breath. The patient's symptoms are moderate, continuous, and worsening. The patient is now admitted for further treatment of acute pancreatitis. I reviewed the notes from [facility]. Home Medications Medication Instructions Recorded Confirmed Type Albuterol Neb [Proventil Neb] 2.5 mg RESP TX RT Q6H PRN 12/05/16 Rx Dextrose 50% [D50] 25 gm IV PRN PRN syringe 12/05/16 Rx Glucagon 1 mg IM PRN PRN vial 12/05/16 Rx HYDROmorphone INJ [Dilaudid Inj] 2 mg IV Q2H PRN vial 12/05/16 Rx Insulin Regular [HumuLIN R] See Protocol SUBCUT Q6HR unit 12/05/16 Rx Levofloxacin Inj [Levaquin Inj] 500 mg IV Q24H 12/05/16 Rx Ondansetron Inj [Zofran Inj] 4 mg IV Q4H PRN vial 12/05/16 Rx metroNIDAZOLE INJ [Flagyl Inj] 500 mg IV Q8H 12/05/16 Rx Allergies Allergy/AdvReac Type Severity Reaction Status Date / Time No Known Allergies Allergy Verified 11/30/16 22:06 Medical,Surgical,& Family Hx - Medical History Cardio: History of: Hypertension No history of: Aneurysm, Cardiac Dysrhythmia, Cerebrovascular Disease, Congenital Heart Disease, CHF, CAD, SD, Pacemaker, PVD, Valvular Heart Disease, Cardiovascular Problems Psychological: No history of: Anxiety Disorders, ADHD, Behavior Problems, Bipolar Disorder, Depression, Previous Suicide Attempt, Psychiatric/Substance Abuse Tx, Schizophrenia, Violent Behavior, Psychiatric Problems Neurology: No history of: Brain Aneurysm, Cerebral Hemorrhage, Cerebrovascular Accident , Cerebral Palsy, Dementia, Migraine, Multiple Sclerosis, Parkinson's Disease, Peripheral Neuropathy, Seizures, TIA, Vertigo, Neurologocal Cancer HEENT: No history of: Ear Problem, Eye Problem, Dental Problems, Glaucoma, Oral Cancer, HEENT Problems Endocrine: History of: Diabetes Mellitus (IDDM), Diabetes Mellitus (NIDDM) No history of: Adrenal Disease, Dyslipidemia, Thyroid Disorder, Endocrine Cancer, Endocrine Problems Rheumatology: No history of;: Fibromyalgia, Gout, Myasthenia Gravis, Psoriasis, Rheumatoid Arthritis, Sjogrens, Systemic Lupus Erythematosus, Rheumatological Problems Respiratory: History of: COPD, Obstructive Sleep Apnea (CPap) No history of: Asthma, Bronchitis, Intubation, Pulmonary Embolism, Pulmonary Hypertension, Pneumonia, Lung Cancer, Respiratory Problems Gastrointestinal: History of: Pancreatitis, GI Problems (percutaneous drain inserted at time of surgery in April) Musculoskeletal: History of: Back/Neck Problems No history of: Amputation, Degenerative Disk Disease, Herniated Disk, Osteoporosis, Musculoskeletal Cancer, Musculoskeletal Problems (OA) Hematology: No history of: Anemia, Blood Transfusion Reaction, Bleeding Problems, Clotting Problems, Sickle Cell Disease, Hematologic Cancer, Blood Disorders Reproductive: No histroy: Penile Disorder, Sexually Transmitted Disease, Reproductive Cancer, Reproductive Problems Other: No history of: Anesthesia Reactions, Anaphylaxis, Cancer, Eczema, HIV, Malignant Hyperthermia, MRSA, Vancomycin-Resistant Enterococci, Skin Problems, Miscellaneous Medical Problems - Surgical History Cardiac Surgeries: Sugical HX of: Cardiac Catheterization Patient Denies: Femoral-Popliteal Bypass Graft, Cardiac Surgery, Carotid Endarterectomy, Internal Defibrillator, Vascular Access Devices Thoracic Surgeries: Patient denies;: Kidney (Renal Surgery), Lithotripsy, Nephrectomy, Organ Transplant, Lobectomy Neurologic Surgeries: Patient denies: Brain Aneurysm, Cerebral Hemorrhage, Neurologic Surgery HEENT Surgeries: Patient denies: Carotid Endarterectomy, Eye Surgery, Thyroid Surgery, Tonsilectomy & Adenoidectomy Abdominal Surgeries: Surgical HX of: Abdominal Surgery (Pancreatectomy and spleenectomy), Splenectomy Patient denies: Appendectomy, Cholecystectomy, Colonoscopy, Gastric Bypass Surgery, EGD, Hernia Repair Reproductive Surgeries: Patient denies;: Breast Surgery, Cystoscopy, Genitourinary Surgery, Prostate Surgery, Vasectomy Orthopedic Surgeries: Patient denies;: Implanted Devices, Orthopedic Surgery, Spinal Surgery, Total Hip Replacement, Total Knee Replacement - Family History Family History: Reports;: Family Cancer (mother-breast, aunt-leukemia, brother- throat), Family Heart Disease (PARENTS), Family Hypertension Denies;: Family Anesthesia Reaction, Family Diabetes, Family Psychiatric Problems, Family Stroke - Social History Smoking Status: Current every day smoker 12 point system: reviewed and no additional remarkable complaints except as stated Review of systems: A 10 system review is obtained and all systems not mentioned in history of present illness were negative Exam - Constitutional Exam: Constitutional System: Moderate distress. No tremulousness. The patient is alert and oriented Head: Normocephalic, atraumatic. Ears, Nose and Throat System: No evidence of Otitis or Mastoiditis. No epistaxis or discharge Eyes System: Pupils equal, round, and reactive. Extraocular muscles intact. Neck: Supple, without adenopathy, No jugular venous distention. No thyromegaly , neck mass, or prior surgery apparent. Respiratory System: Chest clear to auscultation. Cardiovascular System: Heart with regular rate and rhythm. No murmur. GI System: Abdomen soft, moderately tender. Hypo-active bowel sounds present. Musculoskeletal System: limbs with no pedal edema. Full distal pulses. Neurological System: No discernable sensory deficit. No aphasia Psychiatric System: Conversation is rational Capillary Refill: less than 2 sec Results - Labs Lab Results: I have reviewed the past 24 hour labs Quality Measures - VTE Contraindication to Pharmacological VTE Prophylaxis: High Risk of Bleeding
[2016-12-05] MEDS: HYDROmorphone 2 MG/1 ML VIAL IV PRN ×2 (21:34→23:54)
[2016-12-05] MEDS: SODIUM CHLORIDE 0.9% 1,000 ML IV SCH (21:39)
[2016-12-05] MEDS: metroNIDAZOLE 500 MG/100 ML PREMIX IV SCH (21:41)
[2016-12-05] MEDS: LEVOFLOXACIN 500 MG/100 ML PREMIX IV SCH (22:41)
[2016-12-05] MEDS: INSULIN REGULAR 100 UNIT/ML SUBCUT SCH (23:59)
[2016-12-06] MEDS: HYDROmorphone 2 MG/1 ML VIAL IV PRN ×6 (03:32→20:44)
[2016-12-06] MEDS: metroNIDAZOLE INJ 500 MG in PREMIX 1 EACH IV SCH ×3 (06:21→20:46)
[2016-12-06 07:03] LABS: Basophils # 0.1 10*3/uL (0.0-0.2); Basophils % 0.6 % (0.0-0.8); Eosinophils # 0.4 10*3/uL (0.0-0.87); Hematocrit 40.4 VOL% (42.0-52.0); Immature Granulocytes % 0.8 %; Immature Granulocytes Absolute 0.12 #; Lymphocytes # 2.2 10*3/uL (1.4-4.0); Lymphocytes % 14.8 % (21.2-54.2); Mean Corpuscular HGB Conc 34.7 GM/DL (32-36); Mean Corpuscular Hemoglobin 30 PG (27-34); Mean Corpuscular Volume 87.3 FL (87-102); Mean Platelet Volume 10.7 FL (9.6-12.0); Monocytes # 2.2 10*3/uL (0.11-0.8); Monocytes % 15.3 % (1.7-12.7); Neutrophils # 9.5 10*3/uL (1.4-7.4); Neutrophils % 65.5 % (38.7-73.9); Platelet Count 390 T/CUMM (130-400); Red Blood Count 4.63 MC/CUMM (3.8-5.5); Red Cell Distribution Width 14.4 % (9.3-17.3); White Blood Count 14.5 T/CUMM (4-12)
[2016-12-06 07:26] LABS: INR 1.3
[2016-12-06 07:43] LABS: Alanine Aminotransferase 11 U/L (16-61); Albumin 2.3 G/DL (3.4-5.0); Alkaline Phosphatase 83 U/L (45-117); Aspartate Amino Transferase 11 U/L (0-37); Blood Urea Nitrogen 9 MG/DL (7-18); Calcium 8.2 MG/DL (8.5-10.1); Glucose 130 MG/DL (74-106); Magnesium 2.3 MG/DL (1.8-2.4); Osmolality,Calculated 275.7 MOS/KG (273-304); Potassium 3.6 MMOL/L (3.5-5.1); Sodium 138 MMOL/L (136-145); Total Protein 6.4 G/DL (6.4-8.3); Troponin I Only < 0.015 NG/ML (0.00-0.045)
[2016-12-06] MEDS: SODIUM CHLORIDE 0.9% 1,000 ML IV SCH ×3 (07:50→17:40)
[2016-12-06] MEDS: INSULIN REGULAR 100 UNIT/ML SUBCUT SCH ×3 (07:50→18:13)
--- NOTE | 2016-12-06 11:45 | General Surgery Progress Note ---
Assessment and Plan (1) Fluid collection of pancreas Status: Acute Assessment and plan: Patient is recovering well following endoscopic cyst gastrostomy at [facility] yesterday. Continue current treatment. Continue liquid diet for today. Current Visit: No Subjective Patient reports: Present: no new complaints, feels better, still having pain, pain is less, tolerating liquids well, afebrile. Absent: nausea, vomiting Narrative: Patient had an endoscopic cyst gastrostomy with [address] [facility] yesterday. He feels better today. White blood cell count is improving. Exam - Constitutional Vitals: Period Temp Pulse Resp BP Sys/Meraz Pulse Ox Last 24 Hr 97 F-99.1 F 67-84 16-20 101-133/55-72 91-94 General appearance: no acute distress, over weight - Head Head exam: Present: normal inspection - Eye Eye exam: Present: EOMI - ENT ENT exam: Present: normal exam Mouth exam: Present: normal external inspection, normal voice - Neck Neck exam: Present: normal inspection, trachea midline - Respiratory Respiratory exam: Absent: accessory muscle use, prolonged expiratory phase - Cardiovascular Cardiovascular exam: Present: RRR - GI/Abdominal GI/Abdominal exam: Absent: tenderness Results - Labs CBC & BMP: 12/06/16 06:46 12/06/16 06:46 Quality Measures - VTE Contraindication to Pharmacological VTE Prophylaxis: High Risk of Bleeding
--- NOTE | 2016-12-06 14:19 | Hospitalist Progress Note ---
<Ricardo Bennett - Last Filed: 12/06/16 14:16> Assessment and Plan (1) Pancreatitis Status: Resolved Assessment and plan: Patient is status post gastro-cystic stent placement at [facility]. Surgery following patient. Continue IV antibiotics, IV fluids, and IV pain medications. Current Visit: No Qualifiers: Chronicity: acute Pancreatitis type: other Acute pancreatitis complication: unspecified Qualified Code(s): K85.80 - Other acute pancreatitis without necrosis or infection (2) Leukocytosis Status: Acute Assessment and plan: Continue IV antibiotics. Recheck CBC in a.m. Current Visit: No (3) DM2 (diabetes mellitus, type 2) Status: Chronic Assessment and plan: Accu-Cheks before meals at bedtime. Sliding scale insulin and place. Patient on clear liquid diet due to pancreatitis. Current Visit: No Qualifiers: Diabetes mellitus residential insulin use: without residential use (4) HTN (hypertension) Status: Chronic Assessment and plan: Vital signs stable at present. Current Visit: No Qualifiers: Hypertension type: essential hypertension Qualified Code(s): I10 - Essential (primary) hypertension (5) Hyperlipidemia Status: Chronic Current Visit: No Qualifiers: Hyperlipidemia type: unspecified Qualified Code(s): E78.5 - Hyperlipidemia , unspecified (6) SABRINA (obstructive sleep apnea) Status: Chronic Assessment and plan: Patient's CPAP in use. Current Visit: No Hospitalist: Subjective Interval history: Patient seen and examined today. Patient is status post gastro-cystic stent placement at [facility]. Patient alert and oriented. No acute distress noted. Patient denies any needs at this time. Patient does report abdominal pain. RN is present at bedside to administer pain meds during this encounter. We will continue current plan of care with IV fluids, IV antibiotics, and IV pain medications. Surgery continues to follow. Exam - Constitutional Vitals: Period Temp Pulse Resp BP Sys/Meraz Pulse Ox Last 24 Hr 97 F-99.1 F 67-84 16-20 101-133/55-72 91-94 General appearance: no acute distress, over weight - Head Head exam: Present: normal inspection, normocephalic - Eye Eye exam: Present: EOMI Pupils: Present: LOUISE - Respiratory Respiratory exam: Present: clear to auscultation bilaterally. Absent: wheezes - Cardiovascular Cardiovascular exam: Present: regular rate and rhythm - GI/Abdominal GI/Abdominal exam: Present: normal bowel sounds, tenderness, soft - Extremities Exam Extremities exam: Present: normal capillary refill, full ROM. Absent: edema - Neurological Exam Neurological exam: Present: alert, oriented X3 - Psychiatric Psychiatric exam: Present: normal affect, normal mood - Skin Skin exam: Present: normal color, warm, dry Results - Labs CBC & BMP: 12/06/16 06:46 12/06/16 06:46 Lab Results: I have reviewed the past 24 hour labs Quality Measures - VTE Contraindication to Pharmacological VTE Prophylaxis: High Risk of Bleeding <Eli Zelaya - Last Filed: 12/06/16 18:04> Hospitalist: Subjective Interval history: Patient seen and examined independently of [employer] Bennett, agree with assessment and plan as documented. Patient with improvement in abdominal pain. Leukocytosis is improving. Exam - Constitutional Vitals: Period Temp Pulse Resp BP Sys/Meraz Pulse Ox Last 24 Hr 97 F-99.1 F 67-84 16-20 101-133/55-72 91-94 Results - Labs CBC & BMP: 12/06/16 06:46 12/06/16 06:46
[2016-12-06] MEDS: LEVOFLOXACIN 500 MG/100 ML PREMIX IV SCH (21:55)
[2016-12-07] MEDS: INSULIN REGULAR 100 UNIT/ML SUBCUT SCH ×2 (00:33→05:56)
[2016-12-07] MEDS: SODIUM CHLORIDE 0.9% 1,000 ML IV SCH ×2 (03:47→09:42)
[2016-12-07] MEDS: metroNIDAZOLE INJ 500 MG in PREMIX 1 EACH IV SCH (05:51)
[2016-12-07 07:02] LABS: Basophils # 0.1 10*3/uL (0.0-0.2); Eosinophils # 0.5 10*3/uL (0.0-0.87); Eosinophils % 5.4 % (0.00-10.9); Hematocrit 40.2 VOL% (42.0-52.0); Lymphocytes # 1.9 10*3/uL (1.4-4.0); Lymphocytes % 19.2 % (21.2-54.2); Mean Corpuscular HGB Conc 34.8 GM/DL (32-36); Mean Corpuscular Hemoglobin 31 PG (27-34); Mean Corpuscular Volume 88.5 FL (87-102); Monocytes # 1.8 10*3/uL (0.11-0.8); Monocytes % 17.8 % (1.7-12.7); Neutrophils # 5.5 10*3/uL (1.4-7.4); Neutrophils % 55.6 % (38.7-73.9); Platelet Count 445 T/CUMM (130-400); Red Blood Count 4.54 MC/CUMM (3.8-5.5); Red Cell Distribution Width 14.6 % (9.3-17.3)
[2016-12-07 07:45] LABS: Band Neutrophils 1 % (0-10); Eosinophils 4 % (0-10); Hypochromasia Slight; Lymphocytes 21 % (20-55); Microcytosis 1+; Platelet Estimate Increased; Segmented Neutrophils 61 % (50-85); Total Cells Counted 100
[2016-12-07] MEDS ORDERED: LEVOFLOXACIN 500 MG TABLET PO SCH (09:00)
[2016-12-07 09:30] VITALS: BP 110/72
--- NOTE | 2016-12-07 11:35 | Discharge Summary ---
Hospital Course - Hospital Course Hospital Course: This patient was readmitted to the hospital following endoscopic cyst gastrostomy at [facility] in [place]. He had a prompt response to this treatment and his abdominal pain resolved and he was eating normally full liquids without any trouble. His white blood cell count normalized and his abdominal pain was resolved and he was discharged home with follow-up as needed here in the radiation. 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 I will be happy to see him back in the future if anything further need arises Diagnosis - Discharge Diagnosis (1) Fluid collection of pancreas Status: Acute Discharge Plan - Discharge Data Disposition: Disch To Home/Self Care Condition at Discharge: Stable Discharge Diet: diabetic diet Activity: resume usual activities as tolerated Hygiene: no restrictions Weight Bearing at Discharge: weight bear as tolerated Driving: no restrictions Contact your physician if you experience:: fever over 101, Difficulty voiding, Redness or swelling, Nausea/Vomiting, Shortness of breath, Bleeding, pain uncontrolled by pain medications - Discharge Medications New Levofloxacin Tab [Levaquin Tab] 500 mg PO DAILY #7 tablet metroNIDAZOLE TAB [Flagyl Cap/Tab] 500 mg PO Q8HR #21 tablet Continue Albuterol Neb [Proventil Neb] 2.5 mg RESP TX RT Q6H PRN PRN Reason: Shortness Of Breath/Wheezing Discontinued Dextrose 50% [D50] 25 gm IV PRN PRN syringe PRN Reason: Hypoglycemia with IV access Glucagon 1 mg IM PRN PRN vial PRN Reason: Hypoglycemia w/o IV access HYDROmorphone INJ [Dilaudid Inj] 2 mg IV Q2H PRN vial PRN Reason: Pain Severe (8-10) Levofloxacin Inj [Levaquin Inj] 500 mg IV Q24H Ondansetron Inj [Zofran Inj] 4 mg IV Q4H PRN vial PRN Reason: Nausea/Vomiting metroNIDAZOLE INJ [Flagyl Inj] 500 mg IV Q8H Insulin Regular [HumuLIN R] See Protocol SUBCUT Q6HR unit - Follow Up or Referral - Forms/Instructions Additional Discharge Instructions: call your 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 Exam - Constitutional Vitals: Period Temp Pulse Resp BP Sys/Meraz Pulse Ox Last 24 Hr 97.1 F-98.1 F 68-78 16-18 110-118/59-72 92-98 General appearance: no acute distress, over weight - Head Head exam: Present: normal inspection, normocephalic - Eye Eye exam: Present: EOMI - ENT ENT exam: Present: normal exam - Neck Neck exam: Present: normal inspection - Respiratory Respiratory exam: Absent: accessory muscle use, prolonged expiratory phase - Cardiovascular Cardiovascular exam: Absent: systolic murmur, tachycardia - GI/Abdominal GI/Abdominal exam: Absent: tenderness - Neurological Exam Neurological exam: Present: alert, oriented X3 - Psychiatric Psychiatric exam: Present: normal affect, normal mood - Skin Skin exam: Present: normal color, warm Discharge Results Labs on day of discharge: Labs from last 24 hours 12/07/16 12/07/16 12/07/16 06:12 05:49 00:23 WBC 10.0 D RBC 4.54 Hgb 14.0 Hct 40.2 L MCV 88.5 MCH 31 MCHC 34.8 RDW 14.6 Plt Count 445 H MPV 11.0 Neut % (Auto) 55.6 Lymph % (Auto) 19.2 L [place] % (Auto) 17.8 H Eos % (Auto) 5.4 Baso % (Auto) 1.0 H Neut # (Auto) 5.5 Lymph # (Auto) 1.9 [place] # (Auto) 1.8 H Eos # (Auto) 0.5 Baso # (Auto) 0.1 Total Counted 100 Immature Gran % 1.0 Nucleated RBC % 0.0 Immature Gran # 0.10 Segmented Neutrophils 61 Band Neutrophils 1 Lymphocytes 21 Monocytes 13 Eosinophils 4 Nucleated RBCs # 0.00 Platelet Estimate Increased Immature Plt Fraction 0.0 Hypochromasia Slight Microcytosis 1+ POC Glucose 142 H 185 H 12/06/16 12/06/16 17:01 11:04 WBC RBC Hgb Hct MCV MCH MCHC RDW Plt Count MPV Neut % (Auto) Lymph % (Auto) [place] % (Auto) Eos % (Auto) Baso % (Auto) Neut # (Auto) Lymph # (Auto) [place] # (Auto) Eos # (Auto) Baso # (Auto) Total Counted Immature Gran % Nucleated RBC % Immature Gran # Segmented Neutrophils Band Neutrophils Lymphocytes Monocytes Eosinophils Nucleated RBCs # Platelet Estimate Immature Plt Fraction Hypochromasia Microcytosis POC Glucose 216 H 151 H DS: Provider Date of admission: 12/05/16 20:45 Primary care physician: Manny Campos MD Attending physician on admission: Ignacio Washington MD Consults: 12/06/16 07:17 Consult to Physician [CONS] Routine Comment: Consulting Provider: Doug Encarnacion Person Notified: MD walton Date Notified: 12/06/16 12/06/16 07:18 Consult to Physician [CONS] Routine Comment: pancreatic cyst s/p drainage Consulting Provider: Devonte Belle Person Notified: aware Discharging clinician: Doug Encarnacion MD Expected date of discharge: 12/07/16
--- NOTE | 2016-12-07 13:37 | Event Note ---
Chief complaint drainage of pancreatic cyst and [facility] Patient without complaints of pain. Will increase diet slowly and observe. He has no nausea vomiting at this time. Review of systems denies any shortness of breath chest pain Exam he is afebrile vital signs are stable lids conjunctiva is unremarkable pharynx is benign neck supple no JVD no thyromegaly or supraclavicular nodes lungs clear to auscultation heart regular rate and rhythm abdomen soft nondistended nontender no masses Extremities no clubbing cyanosis edema all 4 extremities. Recommendations: Continue current treatment Dr. hSea will resume care in a.m.
[2016-12-07] MEDS ORDERED: metroNIDAZOLE 500 MG TABLET PO SCH (14:00)
== END 2016-12-07 13:24 | disposition home or self-care (01) ==
LOC: INTOOBSV 20:45 → SUATTDRO 20:45 → N.5E 20:45
PROVIDERS: ADMIT Internal Medicine; ATTEND Internal Medicine